=== PATIENT | female | born 1985 | race Caucasian/White ===

== ENCOUNTER 2016-03-24 01:33 | Emergency (ER) | payer OTHER, SELFPAY ==
[2016-03-24 03:13] LABS: MEAN CORPUSCULAR HEMOGLOBIN 34.2 pg (27.0-33.0); MEAN CORPUSCULAR HGB CONC 34.4 g/dl (32.0-36.5); MEAN CORPUSCULAR VOLUME 99.3 fl (80.0-96.0); WHITE BLOOD COUNT 8.8 K/mm3 (4.0-10.0)
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
--- NOTE | 2016-03-24 05:13 | EDDOCDS ---
Physician Documentation [facility] Name: Rose Mary Joyner Age: 31 yrs Sex: Female : 1985 Arrival Date: 03/24/2016 Time: 01:33 Bed Radiology Private MD: Disposition: 03/24/16 04:39 Discharged to Home/Self Care. Impression: Low back pain, Chest pain, unspecified. - Condition is Stable. - Discharge Instructions: Nonspecific Chest Pain. - Medication Reconciliation, Local Pharmacy Hours form. - [facility]; When: Call to arrange an appointment; Reason: Continuance of care. - Problem is new. - Symptoms have improved. Historical: - Allergies: no known allergies; - Home Meds: 1. none - PMHx: none; - PSHx: none; - Social history: Smoking status: Patient uses tobacco products, light tobacco smoker. No barriers to communication noted. - Family history: Not pertinent. - Immunization history: Last tetanus immunization: - up to date. - : The pt / caregiver states he / she is not on anticoagulants. Home medication list is obtained from the patient. - Last oral intake was: unknown. - Exposure Risk Screening:: None identified. 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 4 in. (162.56 cm); Pain 10/10; 05:03 BP 120 / 82 RA Sitting (auto/reg); Pulse 74 MON; Resp 18 S; Temp 98.0(TE); Pulse Ox 98% cln on R/A; Pain 0/10; 01:50 Body Mass Index 24.03 (63.50 kg, 162.56 cm) [facility] Trauma Score (Adult): 05:10 Eye Response: spontaneous(1); Verbal Response: oriented(1); Motor Response: obeys af2 commands(2); Systolic BP: > 89 mm Hg(4); Respiratory Rate: 10 to 29 per min(4); [place] Score: 15; Trauma Score: 12 MDM: 02:47 IV Saline Lock ordered. fg 02:47 Undress patient appropriately for examination ordered. fg 02:47 Set up pelvic ordered. fg 02:48 Complete Blood Count Ordered. EDMS 02:48 Hcg, Serum Quantitative Ordered. EDMS 02:48 Urinalysis Ordered. EDMS 02:48 Urine Culture Ordered. EDMS 02:49 Chest, 1 View Ordered. EDMS 02:49 Spine. Lumbosacral, Complete Ordered. EDMS 02:49 Type & Screen Ordered. EDMS 03:21 Financial registration complete. hs2 03:38 [facility] Payment Agreement was scanned into [employer] and attached to record. hs2 03:39 [facility] was scanned into [employer] and attached to record. hs2 Signatures: Dispatcher [employer] Starla Garcia RN RN [facility] Carito Camara RN RN af2 Naila Chinchilla MD MD Amy Vallejo, Reg Reg hs2 The chart was reviewed and I authenticate all verbal orders and agree with the evaluation and treatment provided.Corrections: (The following items were deleted from the chart) 04:08 02:47 Heart Tones ordered. fg fg 04:08 02:47 Orthostatic VS ordered. fg fg 04:10 02:48 Chlamydia & GC Amplification+LAB ordered. EDMS EDMS 04:10 02:48 WET PREP+CECE ordered. EDWA EDMS Attachments: 03:38 [facility] Payment Agreement hs2 MTDD
--- NOTE | 2016-03-24 07:54 | REP ---
Lumbosacral spine series 03/24/2016, five view exam Indication: Back pain Findings: There is very minimal lumbar dextro scoliosis. There is no acute fracture or spondylolisthesis. The disc spaces are maintained. Mild facet osteoarthritis is noted on the right and L5 S1. Air-filled loops of small bowel and colon suggest mild ileus Impression: No acute fracture or spondylolisthesis. Minimal lumbar dextroscoliosis. Mild facet osteoarthritis on the right at L5- S1. Mild ileus is suggest Signed by Millie Corona MD 03/24/2016 07:46 A
--- NOTE | 2016-03-26 06:13 | EDDOCDS ---
Physician Documentation Name: Rose Mary Doan Age: 31 yrs Sex: Female : 1985 Arrival Date: 03/24/2016 Time: 01:33 Bed Radiology Private MD: Disposition: 03/24/16 04:39 Discharged to Home/Self Care. Impression: Low back pain, Chest pain, unspecified. - Condition is Stable. - Discharge Instructions: Nonspecific Chest Pain. - Medication Reconciliation, Local Pharmacy Hours form. - [facility]; When: Call to arrange an appointment; Reason: Continuance of care. - Problem is new. - Symptoms have improved. Historical: - Allergies: no known allergies; - Home Meds: 1. none - PMHx: none; - PSHx: none; - Social history: Smoking status: Patient uses tobacco products, light tobacco smoker. No barriers to communication noted. - Family history: Not pertinent. - Immunization history: Last tetanus immunization: - up to date. - : The pt / caregiver states he / she is not on anticoagulants. Home medication list is obtained from the patient. - Last oral intake was: unknown. - Exposure Risk Screening:: None identified. 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 4 in. (162.56 cm); Pain 10/10; 05:03 BP 120 / 82 RA Sitting (auto/reg); Pulse 74 MON; Resp 18 S; Temp 98.0(TE); Pulse Ox 98% cln on R/A; Pain 0/10; 01:50 Body Mass Index 24.03 (63.50 kg, 162.56 cm) [facility] Trauma Score (Adult): 05:10 Eye Response: spontaneous(1); Verbal Response: oriented(1); Motor Response: obeys af2 commands(2); Systolic BP: > 89 mm Hg(4); Respiratory Rate: 10 to 29 per min(4); [place] Score: 15; Trauma Score: 12 MDM: 02:47 IV Saline Lock ordered. fg 02:47 Undress patient appropriately for examination ordered. fg 02:47 Set up pelvic ordered. fg 02:48 Complete Blood Count Ordered. EDMS 02:48 Hcg, Serum Quantitative Ordered. EDMS 02:48 Urinalysis Ordered. EDMS 02:48 Urine Culture Ordered. EDMS 02:49 Chest, 1 View Ordered. EDMS 02:49 Spine. Lumbosacral, Complete Ordered. EDMS 02:49 Type & Screen Ordered. EDMS 03:21 Financial registration complete. hs2 03:38 [facility] Payment Agreement was scanned into [employer] and attached to record. hs2 03:39 [facility] was scanned into [employer] and attached to record. hs2 13:57 T-Sheet-- Draft Copy was scanned into [employer] and attached to record. gb Signatures: Dispatcher [employer] EDCodie Wang, Reg Reg gb Starla Bay RN RN [facility] Carito Camara RN RN af2 Naila Chinchilla MD MD Amy Vallejo, Reg Reg hs2 The chart was reviewed and I authenticate all verbal orders and agree with the evaluation and treatment provided.Corrections: (The following items were deleted from the chart) 04:08 02:47 Heart Tones ordered. fg fg 04:08 02:47 Orthostatic VS ordered. fg fg 04:10 02:48 Chlamydia & GC Amplification+LAB ordered. EDMS EDMS 04:10 02:48 WET PREP+CECE ordered. EDMS EDMS Attachments: 03:38 [facility] Payment Agreement hs2 13:57 T-Sheet-- Draft Copy gb Chart Complete MTDD
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
--- NOTE | 2016-03-26 06:13 | EDDOCDS ---
Physician Documentation [facility] Name: Rose Mary Doan Age: 31 yrs Sex: Female : 1985 Arrival Date: 03/24/2016 Time: 01:33 Bed Radiology Private MD: Disposition: 03/24/16 04:39 Discharged to Home/Self Care. Impression: Low back pain, Chest pain, unspecified. - Condition is Stable. - Discharge Instructions: Nonspecific Chest Pain. - Medication Reconciliation, Local Pharmacy Hours form. - Follow up: [facility]; When: Call to arrange an appointment; Reason: Continuance of care. - Problem is new. - Symptoms have improved. Historical: - Allergies: no known allergies; - Home Meds: 1. none - PMHx: none; - PSHx: none; - Social history: Smoking status: Patient uses tobacco products, light tobacco smoker. No barriers to communication noted. - Family history: Not pertinent. - Immunization history: Last tetanus immunization: - up to date. - : The pt / caregiver states he / she is not on anticoagulants. Home medication list is obtained from the patient. - Last oral intake was: unknown. - Exposure Risk Screening:: None identified. 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 4 in. (162.56 cm); Pain 10/10; 05:03 BP 120 / 82 RA Sitting (auto/reg); Pulse 74 MON; Resp 18 S; Temp 98.0(TE); Pulse Ox 98% cln on R/A; Pain 0/10; 01:50 Body Mass Index 24.03 (63.50 kg, 162.56 cm) [facility] Trauma Score (Adult): 05:10 Eye Response: spontaneous(1); Verbal Response: oriented(1); Motor Response: obeys af2 commands(2); Systolic BP: > 89 mm Hg(4); Respiratory Rate: 10 to 29 per min(4); [place] Score: 15; Trauma Score: 12 MDM: 02:47 IV Saline Lock ordered. fg 02:47 Undress patient appropriately for examination ordered. fg 02:47 Set up pelvic ordered. fg 02:48 Complete Blood Count Ordered. EDMS 02:48 Hcg, Serum Quantitative Ordered. EDMS 02:48 Urinalysis Ordered. EDMS 02:48 Urine Culture Ordered. EDMS 02:49 Chest, 1 View Ordered. EDMS 02:49 Spine. Lumbosacral, Complete Ordered. EDMS 02:49 Type & Screen Ordered. EDMS 03:21 Financial registration complete. hs2 03:38 [facility] Payment Agreement was scanned into [employer] and attached to record. hs2 03:39 [facility] was scanned into [employer] and attached to record. hs2 13:57 T-Sheet-- Draft Copy was scanned into [employer] and attached to record. gb Signatures: Dispatcher [employer] EDCodie Wang, Reg Reg gb tSarla Bay RN RN [facility] Carito Camara RN RN af2 Naila Chinchilla MD MD Amy Vallejo, Reg Reg hs2 The chart was reviewed and I authenticate all verbal orders and agree with the evaluation and treatment provided.Corrections: (The following items were deleted from the chart) 04:08 02:47 Heart Tones ordered. fg fg 04:08 02:47 Orthostatic VS ordered. fg fg 04:10 02:48 Chlamydia & GC Amplification+LAB ordered. EDMS EDMS 04:10 02:48 WET PREP+CECE ordered. EDMS EDMS Attachments: 03:38 [facility] Payment Agreement hs2 13:57 T-Sheet-- Draft Copy gb Chart Complete MTDD
--- NOTE | 2016-03-30 13:48 | REP ---
GRAEME CHEST: 03/24/2016 The initial dictation on 03/24/2016 is missing from the dictation bank. The study is being submitted to Dr. Corona for re-dictation on 03/30/2016. INDICATION: Chest pain, 31-year-old female. COMPARISON: None. FINDINGS: The study is somewhat limited by positioning with the bilateral humeri and forearms adducted, partially obscuring the lower lung spicer. There is prominent breast tissue also projected over the lower lung spicer and bilateral nipple shadows are identified. The lungs, however, are without discrete focal infiltrate or pleural effusion. Bones and soft tissues within normal limits. IMPRESSION: The study is limited by patient positioning. However, there is no visualized acute cardiopulmonary process. MTDD
== END 2016-03-24 05:12 | disposition home or self-care (01) ==
LOC: M ED 01:33
DX: Z04.1 Encounter for examination and observation following transport accident (principal); R07.9 Chest pain, unspecified; M54.9 Dorsalgia, unspecified; V40.6XXA Car passenger injured in collision with pedestrian or animal in traffic accident, initial encounter; Y92.410 Unspecified street and highway as the place of occurrence of the external cause; F17.200 Nicotine dependence, unspecified, uncomplicated

== ENCOUNTER 2016-05-11 23:46 | Emergency (ER) | payer OTHER ==
[2016-05-12 00:06] VITALS: BP 152/96
[2016-05-12] MEDS ORDERED: NICOTINE 21MG/24HR 1 EA TRANSDERMAL TD ONE (02:15)
--- NOTE | 2016-05-12 02:50 | REPUSA ---
HISTORY: Trauma. COMPARISON: None. TECHNIQUE: Multiple thin-section contiguous helically-acquired axially-displayed computed tomographic images of the cervical spine are obtained from skull base inferiorly through T1, with images filmed at soft tissue and bone window. 2D Sagittal and coronal reformatted images are performed. FINDINGS: There is normal cervical vertebral body height and alignment on this supine, non-weight bearing exam. Vertebral body mineralization is normal. All of the intervertebral disc spaces have normal height and contour. There is no herniated nucleus p ulposus, canal or foraminal stenosis. No paraspinal masses or collections. IMPRESSION: Normal CT of the cervical spine. Thank you for your kind referral of this patient.
--- NOTE | 2016-05-12 03:00 | REPUSA ---
HISTORY: Trauma. COMPARISON: None. TECHNIQUE: Multiple thin section helically-acquired axially-displayed and helically acquired coronall y displayed computed tomographic images of the face are obtained from the mandible through the fronta l sinuses, with images obtained at soft tissue and bone window. 2D reformatted images were performed. FINDINGS: Normal bony mineralization. No fractures. Normal orbits. Mild chronic mucosal inflammatory changes of the left maxillary sinus. Normal, clear paranasal sinuses. Normal oral and nasal cavities. Normal infratemporal fossa and deep parapharyngeal spaces with normal muscles of mastication. Normal parotid and submandibular glands. IMPRESSION: No acute traumatic pathology. Thank you for your kind referral of this patient
== END 2016-05-12 03:13 | disposition home or self-care (01) ==
LOC: EDBD 23:46 → M ED 23:57
DX: S09.93XA Unspecified injury of face, initial encounter (principal); V49.9XXA Car occupant (driver) (passenger) injured in unspecified traffic accident, initial encounter; Y92.410 Unspecified street and highway as the place of occurrence of the external cause; Y93.02 Activity, running; Y99.9 Unspecified external cause status

== ENCOUNTER → 2016-07-13 | Outpatient (CLI) | payer OTHER, SELFPAY | LOC: M OUTALCOH 08:13 | PROVIDERS: ATTEND Psychiatry & Neurology Psychiatry | DX: Z13.9 Encounter for screening, unspecified (principal); F10.20 Alcohol dependence, uncomplicated ==

== ENCOUNTER 2016-08-09 10:00 | Outpatient (RCR) | payer MEDICAID, SELFPAY | END 2016-08-10 | LOC: M OUTALCOH 10:00 | PROVIDERS: ATTEND Psychiatry & Neurology Psychiatry | DX: Z13.9 Encounter for screening, unspecified (principal); F10.20 Alcohol dependence, uncomplicated; F17.200 Nicotine dependence, unspecified, uncomplicated ==

== ENCOUNTER 2016-08-30 09:00 | Outpatient (RCR) | payer MEDICAID | END 2016-09-09 | LOC: M OUTALCOH 09:00 | PROVIDERS: ATTEND Psychiatry & Neurology Psychiatry | DX: Z13.9 Encounter for screening, unspecified (principal); F10.20 Alcohol dependence, uncomplicated; F17.200 Nicotine dependence, unspecified, uncomplicated ==

== ENCOUNTER → 2016-11-16 | Outpatient (CLI) | payer MEDICAID ==
[~2016-11-16] MED LIST: BUPR300T34; CITA20TA4; CLON0.2T; FLON1SPR; SM N
== END ==
LOC: M OUTALCOH 07:47
PROVIDERS: ATTEND Psychiatry & Neurology Psychiatry
DX: F10.20 Alcohol dependence, uncomplicated (principal)

== ENCOUNTER 2016-12-05 19:27 | Emergency (ER) | payer MEDICAID, OTHER ==
[~2016-12-05] VITALS: Ht 162.6 cm; Wt 77.3 kg
[2016-12-05 19:28] VITALS: BP 153/86
[2016-12-05] MEDS ORDERED: CITA20TA4 (19:38)
[2016-12-05] MEDS ORDERED: SM N (19:38)
[2016-12-05] MEDS ORDERED: CLON0.2T (19:38)
[2016-12-05] MEDS ORDERED: BUPR300T34 (19:38)
[2016-12-05] MEDS ORDERED: FLON1SPR (21:44)
== END 2016-12-05 22:02 | disposition home or self-care (01) ==
LOC: M ED 19:27
DX: J04.0 Acute laryngitis (principal); Z72.0 Tobacco use

== ENCOUNTER 2016-12-09 11:00 | Outpatient (RCR) | payer MEDICAID | END 2016-12-10 | LOC: M OUTALCOH 11:00 | PROVIDERS: ATTEND Psychiatry & Neurology Psychiatry | DX: F10.20 Alcohol dependence, uncomplicated (principal); F17.200 Nicotine dependence, unspecified, uncomplicated ==

== ENCOUNTER 2017-02-08 09:42 | Emergency (ER) | payer MEDICAID, OTHER ==
[~2017-02-08] VITALS: Ht 162.6 cm; Wt 75.0 kg
[2017-02-08] MEDS ORDERED: ACAM0.05 (10:01)
[2017-02-08] MEDS ORDERED: CIPROFLOXACIN HC OTIC SUSPENSION AS ONE (10:30)
--- NOTE | 2017-02-08 10:43 | REP ---
Clinical: Cough . Comparison: 03/24/2016. Technique: PA and lateral. Findings: The mediastinum and cardiac silhouette are normal. The lung spicer are clear and without acute consolidation, effusion, or pneumothorax. The skeletal structures are intact and normal. Impression: 1. No acute cardiopulmonary process. Signed by Colt Dinh MD 02/08/2017 10:36 A
[2017-02-08] MEDS ORDERED: CIPRHCOTIC AS (11:20)
[2017-02-08] MEDS ORDERED: TESS100C PO (11:20)
[2017-02-08 11:37] VITALS: BP 123/73
== END 2017-02-08 11:39 | disposition home or self-care (01) ==
LOC: M ED 09:42
DX: H60.92 Unspecified otitis externa, left ear (principal); R05 Cough; F33.9 Major depressive disorder, recurrent, unspecified; Z88.8 Allergy status to other drugs, medicaments and biological substances; F17.210 Nicotine dependence, cigarettes, uncomplicated

== ENCOUNTER → 2017-02-09 | Outpatient (RCR) | payer OTHER ==
[~2017-02-09] MED LIST changes: +ACAM0.05; +CIPRHCOTIC AS; +TESS100C PO
== END ==
LOC: M OUTALCOH 01-11 08:45
PROVIDERS: ATTEND Psychiatry & Neurology Psychiatry
DX: F10.20 Alcohol dependence, uncomplicated (principal); F17.200 Nicotine dependence, unspecified, uncomplicated

== ENCOUNTER 2017-02-13 16:00 | Outpatient (RCR) | payer OTHER, SELFPAY, MEDICAID | END 2017-03-12 | LOC: M OUTALCOH 02-14 09:00 | DX: F10.20 Alcohol dependence, uncomplicated (principal); F17.200 Nicotine dependence, unspecified, uncomplicated ==

== ENCOUNTER → 2017-03-09 | Outpatient (CLI) | payer OTHER ==
[2017-03-09 10:09] LABS: BASO # 0.1 10^3/uL (0.0-0.2); EOS # 0.3 10^3/uL (0.0-0.50); EOS % 3.5 % (0.0-3.0); IMMATURE GRANULOCYTE % 0.2 % (0-0); LYMPH # 2.7 10^3/uL (1.5-4.5); LYMPH % 33.7 % (24.0-44.0); MEAN CORPUSCULAR HGB CONC 33.6 g/dl (32.0-36.5); MEAN CORPUSCULAR VOLUME 95.3 fl (80.0-96.0); MONO # 0.7 10^3/uL (0.0-0.8); MONO % 8.9 % (0.0-5.0); NEUTROPHILS # 4.2 10^3/uL (1.8-7.7); NEUTROPHILS % 52.7 % (36.0-66.0); PLATELET COUNT, AUTOMATED 265 10^3/uL (150-450); RED CELL DISTRIBUTION WIDTH 12.5 % (11.5-14.5); WHITE BLOOD COUNT 8.1 10^3/uL (4.0-10.0)
[2017-03-09 10:35] LABS: ALBUMIN 3.6 GM/DL (3.2-5.2); ALBUMIN/GLOBULIN RATIO 1.24 (1.00-1.93); ALKALINE PHOSPHATASE 62 U/L (45-117); ALT/SGPT 49 U/L (12-78); ANION GAP 5 MEQ/L (8-16); AST/SGOT 24 U/L (7-37); BILIRUBIN,TOTAL 0.4 MG/DL (0.2-1.0); BLOOD UREA NITROGEN 14 MG/DL (7-18); CALCIUM LEVEL 8.9 MG/DL (8.5-10.1); CARBON DIOXIDE LEVEL 31 MEQ/L (21-32); CHLORIDE LEVEL 103 MEQ/L (98-107); CREATININE FOR GFR 0.65 MG/DL (0.55-1.02); GLOMERULAR FILTRATION RATE > 60.0 (>60); GLUCOSE, FASTING 66 MG/DL (70-105); POTASSIUM SERUM 4.4 MEQ/L (3.5-5.1); SODIUM LEVEL 139 MEQ/L (136-145); TOTAL PROTEIN 6.5 GM/DL (6.4-8.2)
== END ==
LOC: M LAB 09:19
DX: Z79.891 Long term (current) use of opiate analgesic (principal)
CPT/HCPCS: 80053

== ENCOUNTER → 2017-07-31 | Outpatient (CLI) | payer OTHER ==
[2017-07-31 09:37] LABS: BASO % 0.4 % (0.0-1.0); EOS # 0.1 10^3/uL (0.0-0.50); EOS % 2.1 % (0.0-3.0); HEMATOCRIT 38.2 % (36.0-47.0); HEMOGLOBIN 13.1 g/dl (12.0-15.5); IMMATURE GRANULOCYTE % 0.3 % (0-3.0); LYMPH # 2.1 10^3/uL (1.5-4.5); LYMPH % 31.4 % (24.0-44.0); MEAN CORPUSCULAR HEMOGLOBIN 31.1 pg (27.0-33.0); MEAN CORPUSCULAR HGB CONC 34.3 g/dl (32.0-36.5); MEAN CORPUSCULAR VOLUME 90.7 fl (80.0-96.0); MONO # 0.5 10^3/uL (0.0-0.8); MONO % 6.7 % (0.0-5.0); NEUTROPHILS % 59.1 % (36.0-66.0); PLATELET COUNT, AUTOMATED 223 10^3/uL (150-450); RED BLOOD COUNT 4.21 10^6/uL (4.00-5.40); WHITE BLOOD COUNT 6.7 10^3/uL (4.0-10.0)
[2017-07-31 10:05] LABS: ALBUMIN 3.5 GM/DL (3.2-5.2); ALBUMIN/GLOBULIN RATIO 1.21 (1.00-1.93); ALKALINE PHOSPHATASE 67 U/L (45-117); ALT/SGPT 25 U/L (12-78); ANION GAP 6 MEQ/L (8-16); AST/SGOT 18 U/L (7-37); BILIRUBIN,TOTAL 0.3 MG/DL (0.2-1.0); BLOOD UREA NITROGEN 13 MG/DL (7-18); CALCIUM LEVEL 8.6 MG/DL (8.5-10.1); CARBON DIOXIDE LEVEL 25 MEQ/L (21-32); CHLORIDE LEVEL 111 MEQ/L (98-107); CREATININE FOR GFR 0.74 MG/DL (0.55-1.30); GLOMERULAR FILTRATION RATE > 60.0 (>60); GLUCOSE, FASTING 98 MG/DL (70-100); POTASSIUM SERUM 4.4 MEQ/L (3.5-5.1); SODIUM LEVEL 142 MEQ/L (136-145); TOTAL PROTEIN 6.4 GM/DL (6.4-8.2)
[2017-08-02 00:06] LABS: COMPLEMENT TOTAL (CH50) 39 U/mL (>41)
== END ==
LOC: M LAB 08:51
DX: R79.9 Abnormal finding of blood chemistry, unspecified (principal); E87.8 Other disorders of electrolyte and fluid balance, not elsewhere classified
CPT/HCPCS: 80053

== ENCOUNTER → 2017-09-02 | Outpatient (CLI) | payer OTHER | LOC: M LAB 09:16 | DX: M21.40 Flat foot [pes planus] (acquired), unspecified foot (principal) | CPT/HCPCS: 73620 ==

== ENCOUNTER → 2017-10-19 | Outpatient (CLI) | payer OTHER ==
[2017-10-19 14:01] LABS: BASO # 0.1 10^3/uL (0.0-0.2); BASO % 0.7 % (0.0-1.0); EOS # 0.2 10^3/uL (0.0-0.50); EOS % 3.4 % (0.0-3.0); HEMATOCRIT 38.9 % (36.0-47.0); HEMOGLOBIN 13.2 g/dl (12.0-15.5); IMMATURE GRANULOCYTE % 0.3 % (0-3.0); LYMPH # 3.1 10^3/uL (1.5-4.5); LYMPH % 44.3 % (24.0-44.0); MEAN CORPUSCULAR HEMOGLOBIN 31.5 pg (27.0-33.0); MEAN CORPUSCULAR HGB CONC 33.9 g/dl (32.0-36.5); MEAN CORPUSCULAR VOLUME 92.8 fl (80.0-96.0); MONO # 0.6 10^3/uL (0.0-0.8); MONO % 8.4 % (0.0-5.0); NEUTROPHILS % 42.9 % (36.0-66.0); PLATELET COUNT, AUTOMATED 247 10^3/uL (150-450); RED BLOOD COUNT 4.19 10^6/uL (4.00-5.40)
[2017-10-19 14:04] LABS: APPEARANCE, URINE CLOUDY (CLEAR); BACTERIA, URINE AUTO 1+ (NEGATIVE); BILIRUBIN, URINE AUTO NEGATIVE (NEGATIVE); BLOOD, URINE BLOOD NEGATIVE (NEGATIVE); COLOR, URINE YELLOW (YELLOW); GLUCOSE, URINE (UA) AUTO NEGATIVE (NEGATIVE); KETONE, URINE AUTO NEGATIVE (NEGATIVE); LEUKOCYTE ESTERASE, URINE AUTO 1+ (NEGATIVE); MUCUS, URINE SMALL (NEGATIVE); NITRITE, URINE AUTO NEGATIVE (NEGATIVE); PROTEIN, URINE AUTO NEGATIVE (NEGATIVE); RBC, URINE AUTO 3 /HPF (0-3); SPECIFIC GRAVITY URINE AUTO 1.026 (1.002-1.035); SQUAMOUS EPITHELIAL CELL UR AU 5 /HPF (0-6); UROBILINOGEN, URINE AUTO 0.2 mg/dL (0.0-2.0); WBC, URINE AUTO 5 /HPF (0-3)
[2017-10-19 14:34] LABS: ALBUMIN 3.3 GM/DL (3.2-5.2); ALKALINE PHOSPHATASE 68 U/L (45-117); ALT/SGPT 22 U/L (12-78); ANION GAP 5 MEQ/L (8-16); AST/SGOT 29 U/L (7-37); BILIRUBIN,TOTAL 0.3 MG/DL (0.2-1.0); BLOOD UREA NITROGEN 11 MG/DL (7-18); CALCIUM LEVEL 8.2 MG/DL (8.5-10.1); CARBON DIOXIDE LEVEL 26 MEQ/L (21-32); CHLORIDE LEVEL 110 MEQ/L (98-107); CREATININE FOR GFR 0.73 MG/DL (0.55-1.30); GLOMERULAR FILTRATION RATE > 60.0 (>60); GLUCOSE, FASTING 96 MG/DL (70-100); SODIUM LEVEL 141 MEQ/L (136-145); TOTAL PROTEIN 6.3 GM/DL (6.4-8.2)
[2017-10-19 14:39] LABS: POTASSIUM SERUM 5.2 MEQ/L (3.5-5.1)
== END ==
LOC: M LAB 13:17
DX: Z00.00 Encounter for general adult medical examination without abnormal findings (principal)
CPT/HCPCS: 80053

== ENCOUNTER 2017-11-20 10:01 | Outpatient (RCR) | payer OTHER | END 2017-12-10 | LOC: M PT 10:01 | DX: Z47.89 Encounter for other orthopedic aftercare (principal); M54.5 Low back pain | CPT/HCPCS: 97010 ==

== ENCOUNTER 2017-12-11 12:35 | Outpatient (RCR) | payer OTHER | END 2018-01-10 | LOC: M PT 12-15 09:17 | DX: Z47.89 Encounter for other orthopedic aftercare (principal); M54.5 Low back pain | CPT/HCPCS: 97010 ==

== ENCOUNTER 2019-01-27 16:23 | Emergency (ER) | payer OTHER ==
[~2019-01-27] VITALS: Ht 162.6 cm; Wt 74.2 kg
[~2019-01-27 16:23] MED LIST changes: -CITA20TA4; +CITA20TA6
[2019-01-27] MEDS ORDERED: BUSP30TA PO (16:44)
[2019-01-27] MEDS ORDERED: NALT50TA4 PO (16:44)
[2019-01-27] MEDS ORDERED: metroNIDAZOLE (FLAGYL) 500 MG TAB PO ONE (17:45)
[2019-01-27] MEDS ORDERED: ULIPRISTAL ACETATE 30 MG TAB (ELLA) PO ONE (17:45)
[2019-01-27] MEDS ORDERED: EXPOSURE KIT-ADULT 7 DAY SUPPLY PO ONE (17:45)
[2019-01-27] MEDS ORDERED: LIDOCAINE 1% SDV 5 ML VIAL DILUENT ONE (17:45)
[2019-01-27] MEDS ORDERED: cefTRIAXone SOD 250 MG VIAL (J0696) IM ONE (17:45)
[2019-01-27] MEDS ORDERED: AZITHROMYCIN 250 MG TAB PO ONE (17:45)
[2019-01-27 18:04] LABS: BASO # 0.1 10^3/uL (0.0-0.2); BASO % 0.9 % (0.0-1.0); EOS # 0.1 10^3/uL (0.0-0.5); EOS % 0.8 % (0.0-3.0); HEMOGLOBIN 16.1 g/dl (12.0-15.5); LYMPH # 1.8 10^3/uL (1.5-5.0); LYMPH % 23.2 % (24.0-44.0); MEAN CORPUSCULAR HEMOGLOBIN 33.5 pg (27.0-33.0); MEAN CORPUSCULAR HGB CONC 34.3 g/dl (32.0-36.5); MEAN CORPUSCULAR VOLUME 97.9 fl (80.0-96.0); MONO # 0.5 10^3/uL (0.0-0.8); MONO % 6.6 % (0.0-5.0); NEUTROPHILS # 5.2 10^3/uL (1.5-8.5); NEUTROPHILS % 68.1 % (36.0-66.0); PLATELET COUNT, AUTOMATED 301 10^3/uL (150-450); WHITE BLOOD COUNT 7.6 10^3/uL (4.0-10.0)
[2019-01-27 18:27] LABS: ALBUMIN 3.9 GM/DL (3.2-5.2); ALT/SGPT 45 U/L (12-78); BILIRUBIN,TOTAL 0.8 MG/DL (0.2-1.0); BLOOD UREA NITROGEN 8 MG/DL (7-18); CALCIUM LEVEL 9.9 MG/DL (8.5-10.1); CARBON DIOXIDE LEVEL 27 MEQ/L (21-32); CHLORIDE LEVEL 105 MEQ/L (98-107); GLOMERULAR FILTRATION RATE > 60.0 (>60); GLUCOSE, FASTING 125 MG/DL (70-100); POTASSIUM SERUM 4.2 MEQ/L (3.5-5.1); SODIUM LEVEL 137 MEQ/L (136-145); TOTAL PROTEIN 7.1 GM/DL (6.4-8.2)
[2019-01-27 18:28] LABS: HCG, SERUM QUALITATIVE NEGATIVE (NEGATIVE)
[2019-01-27] MEDS ORDERED: RALTEGRAVIR 400 MG TAB (ISENTRESS) PO ONE (18:30)
[2019-01-27] MEDS ORDERED: TRUVADA 200MG/300MG TABLET PO ONE (18:30)
[2019-01-27 23:36] VITALS: BP 152/99
[2019-01-27] MEDS ORDERED: RALT40TA PO (23:43)
[2019-01-27] MEDS ORDERED: TRUVTAB PO (23:43)
[2019-01-27] MEDS ORDERED: ZOFR4TAB16 PO (23:44)
[2019-01-28] MEDS ORDERED: TRUVADA 200MG/300MG TABLET PO SCH
[2019-01-28] MEDS ORDERED: RALTEGRAVIR 400 MG TAB (ISENTRESS) PO SCH
[2019-01-28 10:25] LABS: HEPATITIS B SURFACE ANTIBODY POSITIVE (POSITIVE)
[2019-01-28 10:35] LABS: HEPATITIS B SURFACE ANTIGEN NEGATIVE (NEGATIVE)
[2019-01-28 11:04] LABS: HIV 1&2 SCREEN CENTAUR NEGATIVE (NEGATIVE)
== END 2019-01-28 | disposition home or self-care (01) ==
LOC: M ED 16:23
DX: Z04.41 Encounter for examination and observation following alleged adult rape (principal); F32.9 Major depressive disorder, single episode, unspecified; F17.200 Nicotine dependence, unspecified, uncomplicated; Z79.899 Other long term (current) drug therapy; Z88.8 Allergy status to other drugs, medicaments and biological substances
CPT/HCPCS: 80053; 84703; 85025; 86706; 86780; 86803; 87340; 87389; 99283; J0696

== ENCOUNTER → 2019-01-28 | Outpatient (CLI) | payer OTHER ==
[~2019-01-28] MED LIST changes: +BUSP30TA PO; +NALT50TA4 PO; +RALT40TA PO; +TRUVTAB PO; +ZOFR4TAB16 PO
== END ==
LOC: M OUTALCOH 07:38
PROVIDERS: ATTEND Psychiatry & Neurology Psychiatry
DX: F10.20 Alcohol dependence, uncomplicated (principal)

== ENCOUNTER 2019-02-04 10:03 | Outpatient (RCR) | payer OTHER | END 2019-02-09 | LOC: M OUTALCOH 10:03 | PROVIDERS: ATTEND Psychiatry & Neurology Psychiatry | DX: F10.20 Alcohol dependence, uncomplicated (principal); F17.200 Nicotine dependence, unspecified, uncomplicated ==

== ENCOUNTER → 2019-02-14 | Outpatient (REF) | payer OTHER ==
[2019-02-14 16:55] LABS: INFLUENZA A AMPLIFICATION NEGATIVE (NEGATIVE); INFLUENZA B AMPLIFICATION NEGATIVE (NEGATIVE)
== END ==
LOC: M LAB REF 16:20
PROVIDERS: ATTEND Physician Assistant
DX: Z20.828 Contact with and (suspected) exposure to other viral communicable diseases (principal)

== ENCOUNTER → 2019-03-12 | Outpatient (RCR) | payer OTHER | LOC: M OUTALCOH 02-18 09:34 | PROVIDERS: ATTEND Psychiatry & Neurology Psychiatry | DX: F10.10 Alcohol abuse, uncomplicated (principal) ==

== ENCOUNTER 2019-04-08 14:00 | Outpatient (RCR) | payer OTHER ==
[~2019-04-08 14:00] MED LIST changes: -BUPR300T34; +BUPR300T92
== END 2019-04-12 ==
LOC: M OUTALCOH 14:00
PROVIDERS: ATTEND Psychiatry & Neurology Psychiatry
DX: F10.10 Alcohol abuse, uncomplicated (principal)

== ENCOUNTER 2019-05-08 12:00 | Outpatient (RCR) | payer OTHER | END 2019-05-11 | LOC: M OUTALCOH 12:00 | PROVIDERS: ATTEND Psychiatry & Neurology Addiction Medicine | DX: F10.20 Alcohol dependence, uncomplicated (principal); F17.200 Nicotine dependence, unspecified, uncomplicated ==

== ENCOUNTER 2019-05-22 12:00 | Outpatient (RCR) | payer OTHER | END 2019-06-11 | LOC: M OUTALCOH 12:00 | PROVIDERS: ATTEND Psychiatry & Neurology Addiction Medicine | DX: F10.10 Alcohol abuse, uncomplicated (principal); F17.200 Nicotine dependence, unspecified, uncomplicated ==

== ENCOUNTER 2019-11-08 14:44 | Emergency (ER) | payer OTHER ==
[~2019-11-08] VITALS: Ht 160 cm; Wt 60.5 kg
[2019-11-08 14:45] VITALS: BP 123/79
[2019-11-08] MEDS ORDERED: PANTOPRAZOLE 40MG VIAL (C9113 PER 1) IV ONE (16:30)
[2019-11-08] MEDS ORDERED: NS 1,000 ML IV ONE (16:30)
[2019-11-08 16:54] LABS: BASO # 0.1 10^3/uL (0.0-0.2); BASO % 0.9 % (0.0-1.0); EOS % 0.5 % (0.0-3.0); HEMATOCRIT 44.1 % (36.0-47.0); HEMOGLOBIN 15.4 g/dl (12.0-15.5); LYMPH # 3.4 10^3/uL (1.5-5.0); LYMPH % 43.4 % (24.0-44.0); MEAN CORPUSCULAR HEMOGLOBIN 35.2 pg (27.0-33.0); MEAN CORPUSCULAR HGB CONC 34.9 g/dl (32.0-36.5); MEAN CORPUSCULAR VOLUME 100.9 fl (80.0-96.0); MONO # 0.6 10^3/uL (0.0-0.8); MONO % 8.1 % (0.0-5.0); NEUTROPHILS # 3.6 10^3/uL (1.5-8.5); NEUTROPHILS % 46.6 % (36.0-66.0); PLATELET COUNT, AUTOMATED 334 10^3/uL (150-450); RED BLOOD COUNT 4.37 10^6/uL (4.00-5.40); WHITE BLOOD COUNT 7.8 10^3/uL (4.0-10.0)
[2019-11-08 17:00] LABS: ALT/SGPT 29 U/L (12-78); BLOOD UREA NITROGEN 7 MG/DL (7-18); CARBON DIOXIDE LEVEL 28 MEQ/L (21-32); CHLORIDE LEVEL 103 MEQ/L (98-107); CREATININE FOR GFR 0.79 MG/DL (0.55-1.30); GLOMERULAR FILTRATION RATE > 60.0 (>60); GLUCOSE, FASTING 85 MG/DL (70-100); POTASSIUM SERUM 4.2 MEQ/L (3.5-5.1); SODIUM LEVEL 138 MEQ/L (136-145)
[2019-11-08 17:01] LABS: ALBUMIN 3.5 GM/DL (3.2-5.2); BILIRUBIN,DIRECT < 0.1 MG/DL (0.0-0.2); BILIRUBIN,TOTAL 0.2 MG/DL (0.2-1.0); LIPASE 61 U/L (73-393); TOTAL PROTEIN 6.8 GM/DL (6.4-8.2)
[2019-11-08 17:22] LABS: HCG, SERUM QUALITATIVE NEGATIVE (NEGATIVE)
== END 2019-11-08 18:12 | disposition left against medical advice (07) ==
LOC: M ED 14:44
DX: R10.9 Unspecified abdominal pain (principal); F17.210 Nicotine dependence, cigarettes, uncomplicated
CPT/HCPCS: 36415; 80048; 80076; 83690; 84703; 85025; 87486; 87581; 87633; 87798; 87880; 99284; C9113

== ENCOUNTER 2019-11-20 16:53 | Emergency (ER) | payer OTHER ==
[~2019-11-20] VITALS: Ht 160 cm; Wt 57.4 kg
== END 2019-11-20 17:05 | disposition left against medical advice (07) ==
LOC: M ED 16:53
DX: Z53.21 Procedure and treatment not carried out due to patient leaving prior to being seen by health care provider (principal)

== ENCOUNTER 2019-11-21 11:14 | Emergency (ER) | payer OTHER ==
[~2019-11-21] VITALS: Ht 165.1 cm; Wt 59.1 kg
[2019-11-21 12:10] LABS: BASO # 0.1 10^3/uL (0.0-0.2); BASO % 0.8 % (0.0-1.0); EOS # 0.1 10^3/uL (0.0-0.5); EOS % 0.8 % (0.0-3.0); HEMATOCRIT 43.4 % (36.0-47.0); HEMOGLOBIN 15.2 g/dl (12.0-15.5); LYMPH # 3.1 10^3/uL (1.5-5.0); LYMPH % 33.6 % (24.0-44.0); MEAN CORPUSCULAR HEMOGLOBIN 35.4 pg (27.0-33.0); MEAN CORPUSCULAR VOLUME 101.2 fl (80.0-96.0); MONO # 0.4 10^3/uL (0.0-0.8); MONO % 4.4 % (0.0-5.0); NEUTROPHILS # 5.5 10^3/uL (1.5-8.5); NEUTROPHILS % 60.2 % (36.0-66.0); PLATELET COUNT, AUTOMATED 217 10^3/uL (150-450); RED BLOOD COUNT 4.29 10^6/uL (4.00-5.40); WHITE BLOOD COUNT 9.2 10^3/uL (4.0-10.0)
[2019-11-21] MEDS ORDERED: NS 1,000 ML IV ONE ×2 (12:15→15:15)
[2019-11-21 12:31] LABS: HCG, SERUM QUALITATIVE NEGATIVE (NEGATIVE)
[2019-11-21 12:39] LABS: ACETAMINOPHEN LEVEL < 2.0 UG/ML (10.0-30.0); ALBUMIN 3.3 GM/DL (3.2-5.2); ALT/SGPT 49 U/L (12-78); BILIRUBIN,DIRECT 0.2 MG/DL (0.0-0.2); BILIRUBIN,TOTAL 0.4 MG/DL (0.2-1.0); BLOOD UREA NITROGEN 9 MG/DL (7-18); CALCIUM LEVEL 9.2 MG/DL (8.5-10.1); CARBON DIOXIDE LEVEL 25 MEQ/L (21-32); CHLORIDE LEVEL 108 MEQ/L (98-107); CPK CREATINE PHOSPHOKINASE 330 U/L (26-192); CREATININE FOR GFR 0.82 MG/DL (0.55-1.30); ETHYL ALCOHOL (ETHANOL) 0.222 % (0.000-0.010); GLOMERULAR FILTRATION RATE > 60.0 (>60); GLUCOSE, FASTING 103 MG/DL (70-100); POTASSIUM SERUM 3.7 MEQ/L (3.5-5.1); SALICYLATE LEVEL 1.8 MG/DL (5.0-30.0); SODIUM LEVEL 143 MEQ/L (136-145); TOTAL PROTEIN 6.6 GM/DL (6.4-8.2)
[2019-11-21 17:08] LABS: AMPHETAMINES LEVEL URINE POSITIVE (NEGATIVE); BARBITURATES URINE NEGATIVE (NEGATIVE); BENZODIAZEPINES URINE NEGATIVE (NEGATIVE); CANNABINOIDS URINE POSITIVE (NEGATIVE); COCAINE METABOLITE URINE POSITIVE (NEGATIVE); METHADONE URINE NEGATIVE (NEGATIVE); OPIATES URINE NEGATIVE (NEGATIVE); PHENCYCLIDINE URINE NEGATIVE (NEGATIVE)
[2019-11-21 23:58] VITALS: BP 141/90
--- NOTE | 2019-12-05 13:21 | ECGEPIP ---
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
== END 2019-11-22 00:05 ==
LOC: EDBD 11:14 → M ED 11:14
DX: F32.89 Other specified depressive episodes (principal); R00.0 Tachycardia, unspecified; Z79.899 Other long term (current) drug therapy; Z88.8 Allergy status to other drugs, medicaments and biological substances
CPT/HCPCS: 36415; 80048; 80076; 80307; 82550; 84443; 84703; 85025; 93005; 93041; 94760; 96360; 96361; 99285; G0480; U0002

== ENCOUNTER 2019-11-28 23:16 | Emergency (ER) | payer OTHER ==
[~2019-11-28] VITALS: Ht 162.6 cm; Wt 63.6 kg
[2019-11-28] MEDS ORDERED: PANT40TA29 PO (23:41)
[2019-11-28] MEDS ORDERED: PARO5TAB PO (23:41)
[2019-11-28] MEDS ORDERED: QUET100T2 PO (23:41)
[2019-11-28 23:46] LABS: HEMATOCRIT 42.1 % (36.0-47.0); HEMOGLOBIN 14.1 g/dl (12.0-15.5); MEAN CORPUSCULAR HEMOGLOBIN 35.4 pg (27.0-33.0); MEAN CORPUSCULAR HGB CONC 33.5 g/dl (32.0-36.5); MEAN CORPUSCULAR VOLUME 105.8 fl (80.0-96.0); PLATELET COUNT, AUTOMATED 279 10^3/uL (150-450); RED BLOOD COUNT 3.98 10^6/uL (4.00-5.40)
[2019-11-29 00:17] LABS: HCG, SERUM QUALITATIVE NEGATIVE (NEGATIVE)
[2019-11-29 00:36] LABS: AMPHETAMINES LEVEL URINE POSITIVE (NEGATIVE); BARBITURATES URINE NEGATIVE (NEGATIVE); BENZODIAZEPINES URINE POSITIVE (NEGATIVE); CANNABINOIDS URINE POSITIVE (NEGATIVE); COCAINE METABOLITE URINE NEGATIVE (NEGATIVE); METHADONE URINE NEGATIVE (NEGATIVE); OPIATES URINE POSITIVE (NEGATIVE); PHENCYCLIDINE URINE NEGATIVE (NEGATIVE)
[2019-11-29 00:37] LABS: ACETAMINOPHEN LEVEL < 2.0 UG/ML (10.0-30.0); ALBUMIN 4.1 GM/DL (3.2-5.2); ALT/SGPT 56 U/L (12-78); BILIRUBIN,DIRECT 0.2 MG/DL (0.0-0.2); BILIRUBIN,TOTAL 0.5 MG/DL (0.2-1.0); BLOOD UREA NITROGEN 15 MG/DL (7-18); CALCIUM LEVEL 9.2 MG/DL (8.5-10.1); CARBON DIOXIDE LEVEL 22 MEQ/L (21-32); CHLORIDE LEVEL 110 MEQ/L (98-107); CREATININE FOR GFR 0.89 MG/DL (0.55-1.30); ETHYL ALCOHOL (ETHANOL) < 0.003 % (0.000-0.010); GLOMERULAR FILTRATION RATE > 60.0 (>60); GLUCOSE, FASTING 123 MG/DL (70-100); POTASSIUM SERUM 4.1 MEQ/L (3.5-5.1); SALICYLATE LEVEL < 1.7 MG/DL (5.0-30.0); SODIUM LEVEL 139 MEQ/L (136-145); TOTAL PROTEIN 7.5 GM/DL (6.4-8.2)
[2019-11-29 02:28] VITALS: BP 134/86
== END 2019-11-29 02:32 | disposition home or self-care (01) ==
LOC: M ED 23:16
DX: F19.10 Other psychoactive substance abuse, uncomplicated (principal); F32.9 Major depressive disorder, single episode, unspecified; K21.9 Gastro-esophageal reflux disease without esophagitis; F17.200 Nicotine dependence, unspecified, uncomplicated; Z79.899 Other long term (current) drug therapy; Z88.8 Allergy status to other drugs, medicaments and biological substances
CPT/HCPCS: 80048; 80076; 80307; 84443; 84703; 85027; 99284; G0480

== ENCOUNTER 2020-07-01 19:17 | Emergency (ER) | payer MEDICAID, OTHER, SELFPAY ==
[~2020-07-01] VITALS: Ht 162.6 cm; Wt 58.5 kg
[~2020-07-01 19:17] MED LIST changes: +EMTR1TAB16 PO; +PANT40TA29 PO; +PARO5TAB PO; +QUET100T2 PO; -TRUVTAB PO
[2020-07-01] MEDS ORDERED: NS 1,000 ML IV ONE (19:45)
[2020-07-01 19:52] LABS: BASO % 0.3 % (0.0-1.0); EOS % 0.1 % (0.0-3.0); HEMATOCRIT 42.3 % (36.0-47.0); HEMOGLOBIN 13.9 g/dl (12.0-15.5); LYMPH # 2.3 10^3/uL (1.5-5.0); LYMPH % 16.6 % (24.0-44.0); MEAN CORPUSCULAR HEMOGLOBIN 32.6 pg (27.0-33.0); MEAN CORPUSCULAR HGB CONC 32.9 g/dl (32.0-36.5); MEAN CORPUSCULAR VOLUME 99.1 fl (80.0-96.0); MONO % 6.9 % (2.0-8.0); NEUTROPHILS # 10.6 10^3/uL (1.5-8.5); NEUTROPHILS % 75.5 % (36.0-66.0); PLATELET COUNT, AUTOMATED 286 10^3/uL (150-450); RED BLOOD COUNT 4.27 10^6/uL (4.00-5.40); VENOUS BASE EXCESS -4.9 (-2.0-2.0); VENOUS HCO3 24.6 MEQ/L (23.0-27.0); VENOUS O2 SATURATION 57.3 % (60.0-80.0); VENOUS PARTIAL PRESSURE CO2 66.1 mmHg (38.0-50.0); VENOUS PARTIAL PRESSURE O2 33.4 mmHg (30.0-50.0); VENOUS PH 7.189 UNITS (7.330-7.430); VENOUS STANDARD HCO3 19.5 MEQ/L; VENOUS TOTAL CO2 26.7 MEQ/L (24.0-28.0)
[2020-07-01 20:18] LABS: HCG, SERUM QUALITATIVE NEGATIVE (NEGATIVE)
[2020-07-01 20:19] LABS: OSMOLALITY SERUM 308 MOSM/KG (275-295)
[2020-07-01 20:38] LABS: ACETAMINOPHEN LEVEL < 2.0 UG/ML (10.0-30.0); ALBUMIN 3.5 GM/DL (3.2-5.2); ALT/SGPT 40 U/L (12-78); BILIRUBIN,DIRECT 0.1 MG/DL (0.0-0.2); BILIRUBIN,TOTAL 0.2 MG/DL (0.2-1.0); BLOOD UREA NITROGEN 9 MG/DL (7-18); CALCIUM LEVEL 8.5 MG/DL (8.5-10.1); CARBON DIOXIDE LEVEL 28 MEQ/L (21-32); CHLORIDE LEVEL 104 MEQ/L (98-107); CPK CREATINE PHOSPHOKINASE 213 U/L (26-192); CREATININE FOR GFR 0.93 MG/DL (0.55-1.30); ETHYL ALCOHOL (ETHANOL) 0.102 % (0.000-0.010); GLOMERULAR FILTRATION RATE > 60.0 (>60); GLUCOSE, FASTING 54 MG/DL (70-100); POTASSIUM SERUM 3.5 MEQ/L (3.5-5.1); SALICYLATE LEVEL 2.3 MG/DL (5.0-30.0); SODIUM LEVEL 140 MEQ/L (136-145); TOTAL PROTEIN 6.7 GM/DL (6.4-8.2)
--- NOTE | 2020-07-01 21:28 | REPVR ---
PROCEDURE INFORMATION: Exam: XR Chest Exam date and time: 07/01/2020 8:42 PM Age: 35 years old Clinical indication: Other: Od; Additional info: Drug overdose TECHNIQUE: Imaging protocol: XR of the chest. Views: 1 view. COMPARISON: CR Chest, 1 view 03/24/2016 4:20 AM FINDINGS: Lungs: Unremarkable. No consolidation. Pleural spaces: Unremarkable. No pleural effusion. No pneumothorax. Heart/Mediastinum: Unremarkable. No cardiomegaly. Bones/joints: Unremarkable. IMPRESSION: No acute findings. Electronically signed by: Juan Alberto Hernandez On 07/01/2020 21:28:14 PM
[2020-07-01 21:54] LABS: AMPHETAMINES LEVEL URINE POSITIVE (NEGATIVE); BARBITURATES URINE NEGATIVE (NEGATIVE); BENZODIAZEPINES URINE NEGATIVE (NEGATIVE); CANNABINOIDS URINE POSITIVE (NEGATIVE); COCAINE METABOLITE URINE NEGATIVE (NEGATIVE); METHADONE URINE NEGATIVE (NEGATIVE); OPIATES URINE NEGATIVE (NEGATIVE); PHENCYCLIDINE URINE NEGATIVE (NEGATIVE)
[2020-07-02] MEDS ORDERED: NEUR100C PO (06:19)
[2020-07-02 07:15] VITALS: BP 123/82
--- NOTE | 2020-07-02 13:03 | ECGEPIP ---
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
== END 2020-07-02 07:53 | disposition home or self-care (01) ==
LOC: M ED 19:17
DX: F19.129 Other psychoactive substance abuse with intoxication, unspecified (principal); R20.2 Paresthesia of skin; F32.9 Major depressive disorder, single episode, unspecified; F17.200 Nicotine dependence, unspecified, uncomplicated; Z88.8 Allergy status to other drugs, medicaments and biological substances

== ENCOUNTER → 2020-08-21 | Outpatient (REF) | payer OTHER ==
[~2020-08-21] MED LIST changes: +NEUR100C PO
== END ==
LOC: M LAB REF 15:49
PROVIDERS: ATTEND Surgery
DX: A64 Unspecified sexually transmitted disease (principal)

== ENCOUNTER 2021-01-20 14:24 | Inpatient (IN) | payer MEDICAID, OTHER ==
[~2021-01-20] VITALS: Ht 162.6 cm; Wt 83.6 kg
--- OUTSIDE RECORDS SUMMARY | 2021-01-20 14:29 | CCD | Continuity of Care Document ---
Author Author Rose Mary ESPARZA M.D. Organization Unknown Address [address] [place] [address] Phone [phone] Problems Active Problems Provider Date Alcohol dependence Medical Onset: 03/22/2016 Social History Type Date Description Comments Sex Unknown Allergies, Adverse Reactions, Alerts Description No Known Drug Allergies Medications Active Medications SIG Qnty Indications Ordering Provide r Date Paroxetine HCL 10mg Tablets 1 by mouth every day 30tabs Jay Esparza M.D. 09/23/2020 Pantoprazole Sodium 40mg Tablets D R 1 by mouth every day 30tabs Jay Esparza M.D. 09/23/2020 Quetiapine Fumarate 100mg Tablets 1 tab by mouth at bedtime 30tabs Jay Esparza M.D. 09/23/2020 History Medications Paroxetine HCL 10mg Tablets 1 by mouth every day 30tabs Jay Esparza M.D. 09/23/2020 - 09/23/2020 Macrobid 100mg Capsules 1 tab by mouth twice a day 14caps Jay Esparza M.D. 08/24/2020 - 09/23/2020 Immunizations Description No Information Available Vital Signs Date Vital Result Comment 2020 10:29am BP Systolic 146 mmHg BP Diastolic 99 mmHg Heart Rate 89 /min Respiratory Rate 18 /min Body Temperature 97.6 F Weight 126.00 lb 02/17/2017 9:42am BP Systolic 130 mmHg BP Diastolic 86 mmHg Heart Rate 97 /min Respiratory Rate 18 /min Body Temperature 98.4 F Weight 170.00 lb Height 64 inches 5'4" Results Description No Information Available Procedures Description No Information Available Medical Devices Description No Information Available Encounters Description No Information Available Assessments Description No Information Available Plan of Treatment No Information Available Functional Status Description No Information Available Mental Status Description No Information Available Referrals Description No Information Available
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
[2021-01-20] MEDS ORDERED: QUEtiapine FUMARATE 25 MG TAB PO ONE (14:50)
[2021-01-20] MEDS ORDERED: NICOTINE 21MG/24HR 1 EA TRANSDERMAL TD ONE (15:20)
[2021-01-20 15:51] LABS: HEMATOCRIT 42.9 % (36.0-47.0); HEMOGLOBIN 14.8 g/dl (12.0-15.5); MEAN CORPUSCULAR HGB CONC 34.5 g/dl (32.0-36.5); MEAN CORPUSCULAR VOLUME 89.9 fl (80.0-96.0); PLATELET COUNT, AUTOMATED 251 10^3/uL (150-450); RED BLOOD COUNT 4.77 10^6/uL (4.00-5.40); WHITE BLOOD COUNT 7.5 10^3/uL (4.0-10.0)
[2021-01-20 16:22] LABS: AMPHETAMINES LEVEL URINE POSITIVE (NEGATIVE); BARBITURATES URINE NEGATIVE (NEGATIVE); BENZODIAZEPINES URINE NEGATIVE (NEGATIVE); CANNABINOIDS URINE POSITIVE (NEGATIVE); COCAINE METABOLITE URINE NEGATIVE (NEGATIVE); METHADONE URINE NEGATIVE (NEGATIVE); OPIATES URINE NEGATIVE (NEGATIVE); PHENCYCLIDINE URINE NEGATIVE (NEGATIVE)
[2021-01-20 16:36] LABS: ALBUMIN 4.1 GM/DL (3.2-5.2); ALT/SGPT 91 U/L (12-78); BILIRUBIN,DIRECT 0.1 MG/DL (0.0-0.2); BILIRUBIN,TOTAL 0.3 MG/DL (0.2-1.0); BLOOD UREA NITROGEN 3 MG/DL (7-18); CALCIUM LEVEL 9.4 MG/DL (8.5-10.1); CARBON DIOXIDE LEVEL 23 MEQ/L (21-32); CHLORIDE LEVEL 107 MEQ/L (98-107); CREATININE FOR GFR 0.71 MG/DL (0.55-1.30); GLOMERULAR FILTRATION RATE > 60.0 (>60); GLUCOSE, FASTING 97 MG/DL (70-100); POTASSIUM SERUM 3.5 MEQ/L (3.5-5.1); SODIUM LEVEL 141 MEQ/L (136-145); TOTAL PROTEIN 7.7 GM/DL (6.4-8.2)
[2021-01-20 16:37] LABS: ACETAMINOPHEN LEVEL 2.1 UG/ML (10.0-30.0); SALICYLATE LEVEL 6.4 MG/DL (5.0-30.0)
[2021-01-20 16:42] LABS: HCG, SERUM QUALITATIVE NEGATIVE (NEGATIVE)
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
[2021-01-20] MEDS ORDERED: HOME MED LIST COMPLETE! XX SCH (21:40)
[2021-01-20] MEDS ORDERED: GI COCKTAIL 50ML BTL(HYOSCYAMINE/MAALOX/LIDOCAINE VISCOUS)(1:3:1) PO ONE (22:00)
[2021-01-20 22:36] LABS: RSV AMPLIFICATION NEGATIVE (NEGATIVE)
[2021-01-20] MEDS ORDERED: MOM 30ML SUSPENSION UDC PO PRN (22:50)
[2021-01-20] MEDS ORDERED: traZODone 50 MG TAB PO PRN (22:50)
[2021-01-20] MEDS ORDERED: ACETAMINOPHEN TAB 650MG DOSE (2X325MG) PO PRN (22:50)
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
[2021-01-21] MEDS: PALIPERIDONE 3 MG ER TAB (INVEGA) PO SCH ×2 (00:56→21:02)
[2021-01-21] MEDS: MIRTAZAPINE 15 MG TAB PO PRN ×2 (00:56→21:02)
[2021-01-21 01:26] VITALS: BP 126/97
[2021-01-21] MEDS: LORazepam 2 MG TAB PO PRN ×2 (02:01→16:20)
[2021-01-21 06:38] VITALS: BP 135/88
[2021-01-21] MEDS ORDERED: INFLUENZA QUADRIVALENT PF VACCINE 0.5ML SYRINGE IM ONE (09:00)
[2021-01-21] MEDS: THIAMINE 100 MG TAB PO SCH ×2 (09:45→21:02)
[2021-01-21] MEDS: FOLIC ACID 1 MG TAB PO SCH (09:45)
[2021-01-21] MEDS: MULTIVITAMINS/MINERALS THERAP 1 TAB PO SCH (09:45)
[2021-01-21] MEDS: NICOTINE 21MG/24HR 1 EA TRANSDERMAL TD SCH (09:46)
[2021-01-21 13:39] VITALS: BP 136/84
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
[2021-01-21 16:12] VITALS: BP 132/89
--- NOTE | 2021-01-21 18:20 | HPEPDOC ---
[facility] Medical History & Physical Date of Admission Jan 21, 2021 Date of Service: Jan 21, 2021 Other Provider Jacki Maurer NP, psychiatry Attending Physician: TALON YBARRA DO History and Physical CHIEF COMPLAINT: Suicidal ideations HISTORY OF PRESENT ILLNESS: Patient is a 36-year-old female who presented to the emergency department with suicidal thoughts with overdose on heroin. Patient reports use of heroin 2 days ago. Patient was recently [facility] from [facility] and has been drinking quite heavily since then. Patient is tells me she has been drinking 1 to 2 L of vodka. Patient is still having SI stating that she does not want to be here anymore and wants to . Patient reports depression, anxiety and poor sleep. Patient denies any pain. Patient has been checked for hepatitis C but states that she does not have a history of hepatitis C. Patient was found to have elevated transaminases but denies any right upper quadrant pain. PAST MEDICAL HISTORY: 1. Polysubstance abuse. 2. Depression. 3. Anxiety 4. Borderline personality disorder PAST SURGICAL HISTORY: Denies any surgical history SOCIAL HISTORY: Patient smokes cigarettes and has been drinking alcohol heavily. Patient reports using heroin and marijuana FAMILY HISTORY: Patient denies any known family history of any chronic diseases. ALLERGIES: Please see below. REVIEW OF SYSTEMS: General: Patient denies fevers HEENT: Patient denies headaches Cardiovascular: Patient denies chest pain Respiratory: Patient denies shortness of breath, cough GI: Patient denies abdominal pain, nausea, vomiting, diarrhea : Patient denies increased frequency or pain with urination Extremities: Patient denies swelling or pain in extremities Neurological: Patient denies numbness or tingling in legs Skin: Patient denies any new rashes or lesions. Hematologic: Patient denies any easy bruising. Lymphatic: Patient denies any lumps lumps or bumps in neck, axilla, or groin HOME MEDICATIONS: Please see below. PHYSICAL EXAMINATION: VITAL SIGNS: Temperature 99, pulse 91, respiratory rate 16, blood pressure 132/89, pulse oximetry 100% on room air. General: Alert and oriented female patient who was sleeping in her room when I walked in. Patient not appear to be in any acute distress. HEENT: Normocephalic, atraumatic, moist mucous membranes. Neck: No lymphadenopathy or thyromegaly Cardiac: Regular rate and rhythm, no murmurs, normal S1, normal S2 Pulm: Clear to auscultation bilaterally. No wheezes, rhonchi, rales Abd: Nondistended, nontender to palpation, normal bowel sounds Ext: No edema bilateral lower extremities Neuro: Patient was able to move all 4 extremities on command and reported equal sensation light touch in all 4 extremities. Skin: Skin of the head, neck, upper and lower extremities was examined did not show any evidence of rash or wounds. LABORATORY DATA: See below. IMAGING: No imaging is been performed MICROBIOLOGY: Please see below. ASSESSMENT: 36-year-old female present to the emergency department with suicidal ideations and was found to have elevated transaminases. . PLAN: 1. Suicidal ideations. Patient will be treated by psychiatry. Treatment will continue with antidepressants per psychiatry. 2. Elevated transaminases. Patient has been tested for hepatitis C twice in the past with the most recent test being in January 2019. Because of her most recent use of IV drugs, we will retest her as well. The transaminases being elevated may be secondary to the patient's heavy alcohol use. We will trend the AST and ALT. Patient's bilirubin is normal at this time. We will continue to monitor. Disposition: Patient being discharged per psychiatry. Please reconsult hospitalist if the need arises. Thank you for this consult. I will follow laboratory studies tomorrow morning. Vital Signs Vital Signs Date Time Temp Pulse Resp B/P (MAP) Pulse Ox O2 Delivery O2 Flow Rate FiO2 01/21/21 16:12 99.0 115 16 132/89 (103) 90 Room Air Laboratory Data Labs 24H Laboratory Tests 2 01/20/21 21:32: Coronavirus (COVID-19)(PCR) NEGATIVE, Influenza Type A (RT-PCR) NEGATIVE, Influenza Type B (RT-PCR) NEGATIVE, Respiratory Syncytial Virus (PCR) NEGATIVE Home Medications No Active Prescriptions or Reported Meds Allergies Coded Allergies: trazodone (Verified Adverse Reaction, Mild, Rash, 11/28/19) A-FIB/CHADSVASC A-FIB History Current/History of A-Fib/PAF?: No TALON YBARRA DO Jan 21, 2021 18:20
[2021-01-21 18:45] VITALS: BP 132/89
[2021-01-21 20:43] VITALS: BP 135/86
[2021-01-21] MEDS: QUEtiapine FUMARATE 50MG TAB PO SCH (21:02)
[2021-01-22 02:25] VITALS: BP 140/79
[2021-01-22 06:24] VITALS: BP 132/84
[2021-01-22 06:46] VITALS: BP 132/84
[2021-01-22] MEDS: QUEtiapine FUMARATE 50MG TAB PO SCH ×2 (07:53→22:35)
[2021-01-22] MEDS: MULTIVITAMINS/MINERALS THERAP 1 TAB PO SCH (07:53)
[2021-01-22] MEDS: THIAMINE 100 MG TAB PO SCH ×2 (07:53→22:35)
[2021-01-22] MEDS: FOLIC ACID 1 MG TAB PO SCH (07:53)
[2021-01-22] MEDS: NICOTINE 21MG/24HR 1 EA TRANSDERMAL TD SCH (07:55)
[2021-01-22 08:58] LABS: ALBUMIN 3.1 GM/DL (3.2-5.2); ALT/SGPT 82 U/L (12-78); BILIRUBIN,TOTAL 0.3 MG/DL (0.2-1.0); BLOOD UREA NITROGEN 12 MG/DL (7-18); CALCIUM LEVEL 9.1 MG/DL (8.5-10.1); CARBON DIOXIDE LEVEL 27 MEQ/L (21-32); CHLORIDE LEVEL 108 MEQ/L (98-107); CREATININE FOR GFR 0.69 MG/DL (0.55-1.30); GLOMERULAR FILTRATION RATE > 60.0 (>60); GLUCOSE, FASTING 92 MG/DL (70-100); POTASSIUM SERUM 4.3 MEQ/L (3.5-5.1); SODIUM LEVEL 141 MEQ/L (136-145)
[2021-01-22 09:29] LABS: HEPATITIS B SURFACE ANTIGEN NEGATIVE (NEGATIVE)
[2021-01-22 10:06] LABS: HEPATITIS C VIRUS ABY INDEX > 11.0 INDEX (<0.8)
--- NOTE | 2021-01-22 17:06 | MHIPNPDOC ---
[facility] Progress Note Progress Note DATE OF SERVICE: 01/22/21 HISTORY: Patient is a 36 -year-old Single, , Unemployed, Undomiciled female, who self-presented to the ED with suicidal thoughts to overdose on heroin. Patient used heroin x 2 days ago. Also reporting depression anxiety and poor sleep. She reports visions that she is seeing the end of the world, people getting hurt or dying, states that she had visions of Covid when she was younger. She reports a long history of seeing these visions that her scaring her and feels that she is seeing things that will happen in the future. Admits to using heroin, zach, cannabis and drinking 2 L of vodka a day. Blood alcohol was 0.12. PER ED REPORT: Pt states that she self-presented to the ED due to SI. Pt states "I don't want to be here anymore. I want to ." Pt states that she has done heroin in an attempt to OD four times this week. Pt reports two previous suicide attempts via OD. She has a hx of self-harm & over the past two weeks has been using a needle to cut herself. Pt denies HI. Pt states that she has command AH that tell her to kill herself. Pt states that she has visions of the world ending & states that the government is planning to do things to make the world end. Pt states that she does not want to have these visions anymore. Pt was recently released from [facility] & is homeless. Pt c/o depressed mood, anxiety, poor concentration, decreased energy levels, poor sleep, & poor appetite. Pt has a hx of depression, anxiety, & substance abuse with one admission. She does not currently have OP tx. Pt reports that she drinks 2 liters of vodka daily. Her JACKELYN was 0.120 upon arrival. She reports daily MJ & zach use. She also reports that she has used heroin several times since she was released from [facility] & has used heroin to attempt suicide. Pt's tox screen was positive for amphetamines & cannabis. VITAL SIGNS: See below. NEW TEST RESULTS: None CURRENT MEDICATIONS: See below. MENTAL STATUS EXAMINATION: Patient is a 36 -year-old Single, , Unemployed, Undomiciled female, who self-presented to the ED with suicidal thoughts to overdose on heroin. Patient used heroin x 2 days ago. General Appearance: unkempt, disheveled, appears stated age, hospital scrubs/clothing Build: average Demeanor: hostile (Mild), mistrustful, guarded Eye Contact: average Activity: hostile Behavior: agitated (Mildly) Speech: clear, reg/rate,rhythm,volume Mood: depressed, anxious Affect: constricted Thought Process: logical/linear Thought Content (Delusions): none reported Thought Content (Other): none reported Thought Content (Aggressive): none reported Perception (Hallucinations): visual (Reports having visions of the future) Perception (Other): none reported Cognition(Intelligence Est.): average Oriented: Awake, Alert, Oriented times three Insight: fair Judgment: Fair Psychosis: Denies DIAGNOSES: Major depressive disorder, recurrent, moderate Rule out bipolar depressed Substance use disorder (cannabis, heroin, alcohol) Generalized anxiety disorder Borderline personality disorder ASSESSMENT: Patient was not arousable when provider attempted to see her. According to staff patient would only answer minimal questions. Has been sleeping all day, patient reporting auditory hallucinations to the primary RN. States that she wants to sleep. No reports of withdrawal symptoms from staff, no reports of psychotic symptoms, delusions or hypomania. Discussed with primary RN any critical issues, patient has not reported suicidal ideations but again has been sleeping, isolative and withdrawn MANAGEMENT PLAN: Continue all medications as prescribed TIME SPENT: 15 minutes. Vital Signs Vital Signs Date Time Temp Pulse Resp B/P (MAP) Pulse Ox O2 Delivery O2 Flow Rate FiO2 01/22/21 06:46 96 132/84 01/22/21 06:24 97.4 18 99 Room Air Laboratory Data 24H Labs Laboratory Tests 2 01/22/21 07:03: Anion Gap 6L, Glomerular Filtration Rate > 60.0, Calcium Level 9.1, Total Bilirubin 0.3, Aspartate Amino Transf (AST/SGOT) 74H, Alanine Aminotransferase (ALT/SGPT) 82H, Alkaline Phosphatase 96, Total Protein 6.0#L, Albumin 3.1#L, Albumin/Globulin Ratio 1.1L, Hepatitis B Surface Antigen NEGATIVE, Hepatitis C Antibody Index > 11.0H CBC/BMP Laboratory Tests 01/22/21 07:03 Current Medications Current Medications Medications (Trade) Dose Ordered Sig/Hernan Route PRN Reason Start Time Stop Time Status Last Admin Dose Admin Acetaminophen (Tylenol Tab) 650 mg Q6HP PRN PO HEADACHE or MILD DISCOMFORT 11/10/21 22:50 01/21/21 00:57 Al Hydrox/Mg Hydrox/Simethicone (Mylanta) 30 ml Q4HP PRN PO HEARTBURN/INDIGESTION 01/20/21 22:50 Folic Acid (Folic Acid) 1 mg DAILY PO 01/21/21 09:00 01/22/21 07:53 Home Med (Home Med List Complete!) ASDIRECTED XX 01/20/21 21:40 01/20/21 21:42 DC Lorazepam (Ativan) 2 mg ASDIRECTED PRN PO SEE PROTOCOL 01/20/21 22:50 01/21/21 16:20 Magnesium Hydroxide (Milk Of Magnesia) 30 ml DAILYPRN PRN PO CONSTIPATION 01/20/21 22:50 Mirtazapine (Remeron) 15 mg QHS PRN PO insomnia 01/20/21 23:00 01/21/21 21:02 Multivitamins (Theragram-M) 1 tab DAILY PO 01/21/21 09:00 01/22/21 07:53 Nicotine (Nicoderm Cq 21mg) 1 patch DAILY TD 01/21/21 09:00 01/22/21 07:55 Olanzapine (ZyPREXA ZYDIS) 5 mg Q6HP PRN PO AGITATION 01/20/21 22:50 Paliperidone (Invega) 3 mg QHS PO 01/20/21 21:00 01/21/21 21:02 Quetiapine Fumarate (SEROquel) 50 mg BID PO 01/21/21 21:00 01/22/21 07:53 Thiamine HCl (Thiamine HCl) 100 mg BID PO 01/21/21 09:00 01/24/21 08:59 01/22/21 07:53 Trazodone HCl (Desyrel) 50 mg QHSP PRN PO INSOMNIA 01/20/21 22:50 UNV Allergies Coded Allergies: trazodone (Verified Adverse Reaction, Mild, Rash, 11/28/19) ROLANDO SOUZA JAMB CUTTER Jan 22, 2021 17:06
[2021-01-22 18:32] VITALS: BP 134/89
[2021-01-22] MEDS: PALIPERIDONE 3 MG ER TAB (INVEGA) PO SCH (22:34)
[2021-01-23 06:00] VITALS: BP 111/72
[2021-01-23 06:18] VITALS: BP 111/72
[2021-01-23] MEDS: MULTIVITAMINS/MINERALS THERAP 1 TAB PO SCH (09:37)
[2021-01-23] MEDS: QUEtiapine FUMARATE 50MG TAB PO SCH ×2 (09:37→20:34)
[2021-01-23] MEDS: THIAMINE 100 MG TAB PO SCH ×2 (09:37→20:34)
[2021-01-23] MEDS: NICOTINE 21MG/24HR 1 EA TRANSDERMAL TD SCH (09:37)
[2021-01-23] MEDS: FOLIC ACID 1 MG TAB PO SCH (09:37)
[2021-01-23 13:40] VITALS: BP 132/83
[2021-01-23] MEDS: OLANZapine ORAL DISINTEGRATING TAB 5MG PO PRN (15:44)
[2021-01-23 16:40] VITALS: BP 114/56
--- NOTE | 2021-01-23 17:34 | MHIPNPDOC ---
[facility] Progress Note Progress Note DATE OF SERVICE: 01/23/21 HISTORY: Patient is a 36 -year-old Single, , Unemployed, Undomiciled female, who self-presented to the ED with suicidal thoughts to overdose on heroin. Patient used heroin x 2 days ago. Also reporting depression anxiety and poor sleep. She reports visions that she is seeing the end of the world, people getting hurt or dying, states that she had visions of Covid when she was younger. She reports a long history of seeing these visions that her scaring her and feels that she is seeing things that will happen in the future. Admits to using heroin, zach, cannabis and drinking 2 L of vodka a day. Blood alcohol was 0.12. INTERVAL HISTORY: Rose Mary reports that she is feeling somewhat better with the addition of Invega to her regimen. She continues to reports high levels of anxiety, restlessness, auditory hallucinations consistent with what was reported on admission. We spent significant time today discussing her past trials of medications, noting that she is not on any medications for anxiety at this point in time. She is interested in retrying Prozac along with the addition of buspirone for management of anxiety. We discussed possible options for management of her hallucinations and she is interested in the idea of staying with Invega due to the ability to switch to an injectable form. Additionally she feels that she would need help in controlling her cravings for alcohol, she admits that she will often mask her symptoms with providers in order to build to get out drink and that she did longer wants to engage in the type of behavior. She feels that acamprosate and naltrexone have been unhelpful in the past and is interested in trying disulfiram, which she remembers her mother having used before, and believes that she would be able to continue taking this with the knowledge that if she were to drink she would be horrifically sick and feeling that that would help prevent her from engaging in these activities. VITAL SIGNS: See below. NEW TEST RESULTS: Reviewed transaminases at admission and those drawn yesterday, there is been a downward trend in the results. CURRENT MEDICATIONS: See below. MENTAL STATUS EXAMINATION: Patient is a 36-year old female, who is dressed in hospital clothing, slightly disheveled with some stains seen. Speech: Is spontaneous, with some mumbling, normal rate rhythm and volume. Language skills are intact. Thought processes including: Logical, linear, goal-directed. Thought content: Feels that she needs additional help with her anxiety and would need additional supports in order to prevent herself from turning to drink in the future is interested in trying medications that may be helpful for this. Abstract reasoning, and computation: Appears intact. Description of associations : Linear. Description of abnormal or psychotic thoughts: Reports auditory and visual hallucinations, states they have been [facility]; denies suicidal or homicidal ideation at present. Judgment: Poor. Insight: Fair. Orientation: X3. Recent and remote memory: Intact. Attention span and concentration: Intact. Mood: "Pretty anxious". Affect: Anxious, restricted, congruent with stated mood. DIAGNOSES: Major depressive disorder, recurrent, moderate Rule out bipolar depressed Substance use disorder (cannabis, heroin, alcohol) Generalized anxiety disorder Borderline personality disorder ASSESSMENT: Rose Mary is a 36-year-old female with a significant history of alcohol abuse. She also reports high levels of anxiety which prevented her from interacting well with people. She identifies that medications have been infrequ ently helpful in the past, however she is still under the impression that the medications may be helpful for her. She is interested in trying to get better control of her symptoms and would like to continue with additional treatment. We reviewed multiple different types of medications with her and discussed the risk associated with disulfiram including elevation of transaminases and possibility of liver failure. Additionally we discussed the side effects of increasing Invega, as well as adding fluoxetine and buspirone to her regimen. Rose Mary feels that she would like to start any medications and is aware of the risks, she will inform staff if she begins experiencing side effects and we will manage as needed. MANAGEMENT PLAN: Increase Invega to 6 mg nightly, increase Seroquel to 50 mg every morning and 100 mg nightly, start fluoxetine 20 mg daily, start buspirone 5 mg twice daily, start disulfiram 250 mg daily; will redraw liver enzymes scheduled for Monday. TIME SPENT: 25 minutes. Vital Signs Vital Signs Date Time Temp Pulse Resp B/P (MAP) Pulse Ox O2 Delivery O2 Flow Rate FiO2 01/23/21 16:40 97.6 80 16 114/56 (75) 98 Room Air Current Medications Current Medications Medications (Trade) Dose Ordered Sig/Hernan Route PRN Reason Start Time Stop Time Status Last Admin Dose Admin Acetaminophen (Tylenol Tab) 650 mg Q6HP PRN PO HEADACHE or MILD DISCOMFORT 01/20/21 22:50 01/21/21 00:57 Al Hydrox/Mg Hydrox/Simethicone (Mylanta) 30 ml Q4HP PRN PO HEARTBURN/INDIGESTION 01/20/21 22:50 Folic Acid (Folic Acid) 1 mg DAILY PO 01/21/21 09:00 01/23/21 09:37 Home Med (Home Med List Complete!) ASDIRECTED XX 01/20/21 21:40 01/20/21 21:42 DC Lorazepam (Ativan) 2 mg ASDIRECTED PRN PO SEE PROTOCOL 01/20/21 22:50 01/21/21 16:20 Magnesium Hydroxide (Milk Of Magnesia) 30 ml DAILYPRN PRN PO CONSTIPATION 01/20/21 22:50 Mirtazapine (Remeron) 15 mg QHS PRN PO insomnia 01/20/21 23:00 01/21/21 21:02 Multivitamins (Theragram-M) 1 tab DAILY PO 01/21/21 09:00 01/23/21 09:37 Nicotine (Nicoderm Cq 21mg) 1 patch DAILY TD 01/21/21 09:00 01/23/21 09:37 Olanzapine (ZyPREXA ZYDIS) 5 mg Q6HP PRN PO AGITATION 01/20/21 22:50 01/23/21 15:44 Paliperidone (Invega) 3 mg QHS PO 01/20/21 21:00 01/22/21 22:34 Quetiapine Fumarate (SEROquel) 50 mg BID PO 01/21/21 21:00 01/23/21 09:37 Thiamine HCl (Thiamine HCl) 100 mg BID PO 01/21/21 09:00 01/24/21 08:59 01/23/21 09:37 Trazodone HCl (Desyrel) 50 mg QHSP PRN PO INSOMNIA 01/20/21 22:50 UNV Allergies Coded Allergies: trazodone (Verified Adverse Reaction, Mild, Rash, 11/28/19) ОЛЕГ MICHELE MD Jan 23, 2021 17:34
[2021-01-23] MEDS: busPIRone 5 MG TAB PO SCH (20:34)
[2021-01-23] MEDS: PALIPERIDONE 6 MG ER TAB (INVEGA) PO SCH (20:34)
[2021-01-24 06:38] VITALS: BP 143/67
[2021-01-24] MEDS: NICOTINE 21MG/24HR 1 EA TRANSDERMAL TD SCH (09:46)
[2021-01-24] MEDS: FLUoxetine 20 MG CAP PO SCH (09:46)
[2021-01-24] MEDS: QUEtiapine FUMARATE 50MG TAB PO SCH ×2 (09:47→21:16)
[2021-01-24] MEDS: busPIRone 5 MG TAB PO SCH ×2 (09:47→21:16)
[2021-01-24] MEDS: MAALOX 30 ML SUSP *UDC PO PRN ×2 (12:37→17:11)
[2021-01-24 16:34] VITALS: BP 111/60
[2021-01-24] MEDS ORDERED: CALCIUM CARBONATE 500 MG CHEW U/D PO ONE (19:15)
[2021-01-24] MEDS: PALIPERIDONE 6 MG ER TAB (INVEGA) PO SCH (21:16)
[2021-01-24] MEDS: MIRTAZAPINE 15 MG TAB PO PRN (21:16)
[2021-01-24] MEDS: OLANZapine ORAL DISINTEGRATING TAB 5MG PO PRN (21:17)
[2021-01-25 06:28] VITALS: BP 114/69
[2021-01-25] MEDS: NICOTINE 21MG/24HR 1 EA TRANSDERMAL TD SCH (09:42)
[2021-01-25] MEDS: FLUoxetine 20 MG CAP PO SCH (09:42)
[2021-01-25] MEDS: busPIRone 5 MG TAB PO SCH ×2 (09:42→20:28)
[2021-01-25] MEDS: QUEtiapine FUMARATE 50MG TAB PO SCH ×2 (09:42→20:28)
--- NOTE | 2021-01-25 15:27 | MHIPNPDOC ---
[facility] Progress Note Progress Note DATE OF SERVICE: 01/25/21 HISTORY: Patient is a 36 -year-old Single, , Unemployed, Undomiciled female, who self-presented to the ED with suicidal thoughts to overdose on heroin. Patient used heroin x 2 days ago. Also reporting depression anxiety and poor sleep. She reports visions that she is seeing the end of the world, people getting hurt or dying, states that she had visions of Covid when she was younger. She reports a long history of seeing these visions that her scaring her and feels that she is seeing things that will happen in the future. Admits to using heroin, zach, cannabis and drinking 2 L of vodka a day. Blood alcohol was 0.12. INTERVAL HISTORY: VITAL SIGNS: See below. NEW TEST RESULTS: No new labs CURRENT MEDICATIONS: See below. MENTAL STATUS EXAMINATION: Patient is a 36-year old female, who is dressed in hospital clothing, slightly disheveled with some stains seen. Speech: Is spontaneous, normal rate rhythm and volume. Language skills are intact. Thought processes including: Logical, linear Thought content: Very sleepy today, having a tough time getting out of bed and moving around.. Abstract reasoning, and computation: Appears intact. Description of associations: Linear. Description of abnormal or psychotic thoughts: Denies auditory and visual hallucinations, reports improvement since being in the hospital; denies suicidal or homicidal ideation at present. Judgment: Fair Insight: Fair. Orientation: X3. Recent and remote memory: Intact. Attention span and concentration: Intact. Mood: Neutral. Affect: Drowsy but slightly more euthymic in mood and affect DIAGNOSES: Major depressive disorder, recurrent, moderate Rule out bipolar depressed Substance use disorder (cannabis, heroin, alcohol) Generalized anxiety disorder Borderline personality disorder ASSESSMENT: Patient is reporting improvement in depression, anxiety and auditory hallucinations. She remains very drowsy today, reduced Invega to 3 mg at HS - states that her sleep has improved. Today she stated that is hopeful to be able to find housing with [facility]. States that she should be able to receive services due to her recent incarceration. At this time, she does remain mildly depressed and although her anxiety has improved, she is not at baseline. MANAGEMENT PLAN: Continue medications as prescribed. Patient continues to have sedation patient is agreeable to reducing dose of Invega to 3 mg TIME SPENT: 25 minutes Vital Signs Vital Signs Date Time Temp Pulse Resp B/P (MAP) Pulse Ox O2 Delivery O2 Flow Rate FiO2 01/25/21 06:28 98.2 77 20 114/69 (84) 97 Room Air Current Medications Current Medications Medications (Trade) Dose Ordered Sig/Hernan Route PRN Reason Start Time Stop Time Status Last Admin Dose Admin Acetaminophen (Tylenol Tab) 650 mg Q6HP PRN PO HEADACHE or MILD DISCOMFORT 01/20/21 22:50 01/21/21 00:57 Al Hydrox/Mg Hydrox/Simethicone (Mylanta) 30 ml Q4HP PRN PO HEARTBURN/INDIGESTION 01/20/21 22:50 01/24/21 17:11 Buspirone HCl (Buspar) 5 mg BID PO 01/23/21 21:00 01/25/21 09:42 Fluoxetine HCl (PROzac) 20 mg DAILY PO 01/24/21 09:00 01/25/21 09:42 Folic Acid (Folic Acid) 1 mg DAILY PO 01/21/21 09:00 01/24/21 05:37 DC 01/23/21 09:37 Home Med (Home Med List Complete!) ASDIRECTED XX 01/20/21 21:40 01/20/21 21:42 DC Lorazepam (Ativan) 2 mg ASDIRECTED PRN PO SEE PROTOCOL 01/20/21 22:50 01/24/21 05:37 DC 01/21/21 16:20 Magnesium Hydroxide (Milk Of Magnesia) 30 ml DAILYPRN PRN PO CONSTIPATION 01/20/21 22:50 Mirtazapine (Remeron) 15 mg QHS PRN PO insomnia 01/20/21 23:00 01/24/21 21:16 Multivitamins (Theragram-M) 1 tab DAILY PO 01/21/21 09:00 01/24/21 05:37 DC 01/23/21 09:37 Nicotine (Nicoderm Cq 21mg) 1 patch DAILY TD 01/21/21 09:00 01/25/21 09:42 Olanzapine (ZyPREXA ZYDIS) 5 mg Q6HP PRN PO AGITATION 01/20/21 22:50 01/24/21 21:17 Paliperidone (Invega) 3 mg QHS PO 01/20/21 21:00 01/23/21 17:37 DC 01/22/21 22:34 Paliperidone (Invega) 6 mg QHS PO 01/23/21 21:00 01/24/21 21:16 Quetiapine Fumarate (SEROquel) 50 mg BID PO 01/21/21 21:00 01/25/21 09:42 Thiamine HCl (Thiamine HCl) 100 mg BID PO 01/21/21 09:00 01/24/21 05:37 DC 01/23/21 20:34 Trazodone HCl (Desyrel) 50 mg QHSP PRN PO INSOMNIA 01/20/21 22:50 UNV Allergies Coded Allergies: trazodone (Verified Adverse Reaction, Mild, Rash, 11/28/19) ROLANDO SOUZA NP Jan 25, 2021 13:28
[2021-01-25] MEDS: OLANZapine ORAL DISINTEGRATING TAB 5MG PO PRN ×2 (16:29→22:30)
[2021-01-25 19:17] VITALS: BP 128/69
[2021-01-25] MEDS: MAALOX 30 ML SUSP *UDC PO PRN (20:27)
[2021-01-25] MEDS: PALIPERIDONE 3 MG ER TAB (INVEGA) PO SCH (20:28)
[2021-01-25] MEDS: MIRTAZAPINE 15 MG TAB PO PRN (20:28)
[2021-01-26 06:26] VITALS: BP 110/60
[2021-01-26] MEDS: FLUoxetine 20 MG CAP PO SCH (11:15)
[2021-01-26] MEDS: busPIRone 5 MG TAB PO SCH (11:15)
[2021-01-26] MEDS: QUEtiapine FUMARATE 50MG TAB PO SCH ×2 (11:15→20:24)
[2021-01-26] MEDS: NICOTINE 21MG/24HR 1 EA TRANSDERMAL TD SCH (11:17)
[2021-01-26] MEDS: OLANZapine ORAL DISINTEGRATING TAB 5MG PO PRN (14:35)
--- NOTE | 2021-01-26 16:04 | MHIPNPDOC ---
[facility] Progress Note Progress Note DATE OF SERVICE: 01/26/21 HISTORY: greg is a 36 -year-old Single, , Unemployed, Undomiciled female, who self-presented to the ED with suicidal thoughts to overdose on heroin. Patient used heroin x 2 days ago. Also reporting depression anxiety and poor sleep. She reports visions that she is seeing the end of the world, people getting hurt or dying, states that she had visions of Covid when she was younger. She reports a long history of seeing these visions that her scaring her and feels that she is seeing things that will happen in the future. Admits to using heroin, zach, cannabis and drinking 2 L of vodka a day. Blood alcohol was 0.12. INTERVAL HISTORY: VITAL SIGNS: See below. NEW TEST RESULTS: No new labs CURRENT MEDICATIONS: See below. MENTAL STATUS EXAMINATION: Patient is a 36-year old female, who is dressed in hospital clothing, slightly disheveled with some stains seen. Speech: Is spontaneous, normal rate rhythm and volume. Language skills are intact. Thought processes including: Logical, linear Thought content: reports less depressed but reports continued anxiety, no SI/HI, No auditory of visual hallucinations Abstract reasoning, and computation: Appears intact. Description of associations: Linear. Description of abnormal or psychotic thoughts: Denies auditory and visual hallucinations, reports improvement since being in the hospital; denies suicidal or homicidal ideation at present. Judgment: Fair Insight: Fair. Orientation: X3. Recent and remote memory: Intact. Attention span and concentration: Intact. Mood: Neutral. Affect: euthymic DIAGNOSES: Major depressive disorder, recurrent, moderate Rule out bipolar depressed Substance use disorder (cannabis, heroin, alcohol) Generalized anxiety disorder Borderline personality disorder ASSESSMENT: Patient is reporting a decrease in her depression but continued anxiety, she still reports feeling like she can't sleep states that she was awake until 2 or 3 in the AM. She is requesting her Seroquel to be increased. Seroquel was increased to 150 mg at HS. She is agreeable to an increase in Buspirone to 10 mg BID. States that all other medications are doing well for her. Feels that would be good day for discharge to [facility] for housing. Reports that she wants to be able to have a day to have DSS open if there are any issues after she is seen on . We discussed her medications, indications and possible side effects. She reports no adverse or side effects. Wants to return to [facility] for services. MANAGEMENT PLAN: Continue medications as prescribed. Discharge . TIME SPENT: 25 minutes Vital Signs Vital Signs Date Time Temp Pulse Resp B/P (MAP) Pulse Ox O2 Delivery O2 Flow Rate FiO2 01/26/21 06:26 98.4 75 18 110/60 (77) 97 Room Air Current Medications Current Medications Medications (Trade) Dose Ordered Sig/Hernan Route PRN Reason Start Time Stop Time Status Last Admin Dose Admin Acetaminophen (Tylenol Tab) 650 mg Q6HP PRN PO HEADACHE or MILD DISCOMFORT 01/20/21 22:50 01/21/21 00:57 Al Hydrox/Mg Hydrox/Simethicone (Mylanta) 30 ml Q4HP PRN PO HEARTBURN/INDIGESTION 01/20/21 22:50 01/25/21 20:27 Buspirone HCl (Buspar) 5 mg BID PO 01/23/21 21:00 01/26/21 11:31 DC 01/26/21 11:15 Buspirone HCl (Buspar) 10 mg BID PO 01/26/21 21:00 UNV Fluoxetine HCl (PROzac) 20 mg DAILY PO 01/24/21 09:00 01/26/21 11:15 Folic Acid (Folic Acid) 1 mg DAILY PO 01/21/21 09:00 01/24/21 05:37 DC 01/23/21 09:37 Home Med (Home Med List Complete!) ASDIRECTED XX 01/20/21 21:40 01/20/21 21:42 DC Lorazepam (Ativan) 2 mg ASDIRECTED PRN PO SEE PROTOCOL 01/20/21 22:50 01/24/21 05:37 DC 01/21/21 16:20 Magnesium Hydroxide (Milk Of Magnesia) 30 ml DAILYPRN PRN PO CONSTIPATION 01/20/21 22:50 Mirtazapine (Remeron) 15 mg QHS PRN PO insomnia 01/20/21 23:00 01/25/21 20:28 Multivitamins (Theragram-M) 1 tab DAILY PO 01/21/21 09:00 01/24/21 05:37 DC 01/23/21 09:37 Nicotine (Nicoderm Cq 21mg) 1 patch DAILY TD 01/21/21 09:00 01/26/21 11:17 Olanzapine (ZyPREXA ZYDIS) 5 mg Q6HP PRN PO AGITATION 01/20/21 22:50 01/25/21 22:30 Paliperidone (Invega) 3 mg QHS PO 01/20/21 21:00 01/23/21 17:37 DC 01/22/21 22:34 Paliperidone (Invega) 3 mg QHS PO 01/25/21 21:00 01/25/21 20:28 Paliperidone (Invega) 6 mg QHS PO 01/23/21 21:00 01/25/21 15:20 DC 01/24/21 21:16 Quetiapine Fumarate (SEROquel) 50 mg BID PO 01/21/21 21:00 01/26/21 11:29 DC 01/26/21 11:15 Quetiapine Fumarate (SEROquel) 50 mg QAM PO 01/27/21 09:00 Quetiapine Fumarate (SEROquel) 150 mg QHS PO 01/26/21 21:00 Thiamine HCl (Thiamine HCl) 100 mg BID PO 01/21/21 09:00 01/24/21 05:37 DC 01/23/21 20:34 Trazodone HCl (Desyrel) 50 mg QHSP PRN PO INSOMNIA 01/20/21 22:50 UNV Allergies Coded Allergies: trazodone (Verified Adverse Reaction, Mild, Rash, 11/28/19) ROLANDO SOUZA NP Jan 26, 2021 11:33
[2021-01-26] MEDS: MAALOX 30 ML SUSP *UDC PO PRN (17:54)
[2021-01-26 18:46] VITALS: BP 128/75
[2021-01-26] MEDS: PALIPERIDONE 3 MG ER TAB (INVEGA) PO SCH (20:24)
[2021-01-26] MEDS: busPIRone 10 MG TAB PO SCH (20:24)
[2021-01-26] MEDS: MIRTAZAPINE 15 MG TAB PO PRN (20:24)
[2021-01-27 06:00] VITALS: BP 148/66
[2021-01-27] MEDS: NICOTINE 21MG/24HR 1 EA TRANSDERMAL TD SCH (09:00)
[2021-01-27] MEDS: FLUoxetine 20 MG CAP PO SCH (09:28)
[2021-01-27] MEDS: busPIRone 10 MG TAB PO SCH ×2 (09:28→20:15)
[2021-01-27] MEDS: QUEtiapine FUMARATE 50MG TAB PO SCH ×2 (09:29→20:15)
[2021-01-27] MEDS ORDERED: FLUO20CA22 PO (11:52)
[2021-01-27] MEDS ORDERED: MIRT-62 PO (11:52)
[2021-01-27] MEDS ORDERED: QUET50TA4 PO ×2 (11:52)
[2021-01-27] MEDS ORDERED: NICO21PAT TD (11:52)
[2021-01-27] MEDS ORDERED: BUSP10TA PO (11:52)
[2021-01-27] MEDS: OLANZapine ORAL DISINTEGRATING TAB 5MG PO PRN ×2 (14:20→20:14)
--- NOTE | 2021-01-27 16:10 | MHIPNPDOC ---
[facility] Progress Note Progress Note DATE OF SERVICE: 01/27/21 HISTORY: Patient is a 36 -year-old Single, , Unemployed, Undomiciled female, who self-presented to the ED with suicidal thoughts to overdose on heroin. Patient used heroin x 2 days ago. Also reporting depression anxiety and poor sleep. She reports visions that she is seeing the end of the world, people getting hurt or dying, states that she had visions of Covid when she was younger. She reports a long history of seeing these visions that her scaring her and feels that she is seeing things that will happen in the future. Admits to using heroin, zach, cannabis and drinking 2 L of vodka a day. Blood alcohol was 0.12. INTERVAL HISTORY: VITAL SIGNS: See below. NEW TEST RESULTS: No new labs CURRENT MEDICATIONS: See below. MENTAL STATUS EXAMINATION: Patient is a 36-year old female, who is dressed in hospital clothing, slightly disheveled with some stains seen. Speech: Is spontaneous, normal rate rhythm and volume. Language skills are intact. Thought processes including: Logical, linear Thought content: reports less depressed but reports continued anxiety, no SI/HI, No auditory of visual hallucinations Abstract reasoning, and computation: Appears intact. Description of associations: Linear. Description of abnormal or psychotic thoughts: Denies auditory and visual hallucinations, reports improvement since being in the hospital; denies suicidal or homicidal ideation at present. Judgment: Fair Insight: Fair. Orientation: X3. Recent and remote memory: Intact. Attention span and concentration: Intact. Mood: Neutral. Affect: euthymic DIAGNOSES: Major depressive disorder, recurrent, moderate Rule out bipolar depressed Substance use disorder (cannabis, heroin, alcohol) Generalized anxiety disorder Borderline personality disorder ASSESSMENT: Patient is alert and oriented, has improved mood and affect. She reports a decrease in depression. Reports mild to moderate anxiety with regards to being discharged to [facility] and hopeful for housing. She does report that her sleep has improved with the Seroquel increase to 150 mg. We discussed Invega and Seroquel patient is agreeable to discontinuing Invega. She requests Seroquel 50 mg 3 times a day for her continued anxiety, and Seroquel 150 mg at at bedtime for insomnia. She will be continued on all her other medications. Patient reports good effects of the current regimen. She denies any side effects or adverse reactions, reports that she is stable on her current medicationsverbalized understanding on dosages, indications, frequency, and refills. She is feeling stable, wants to be discharged tomorrow. MANAGEMENT PLAN: Continue medications as prescribed. Discharge . Time spent: 25 minutes Vital Signs Vital Signs Date Time Temp Pulse Resp B/P (MAP) Pulse Ox O2 Delivery O2 Flow Rate FiO2 01/27/21 06:00 98.2 76 16 148/66 (93) 98 01/26/21 06:26 Room Air Current Medications Current Medications Medications (Trade) Dose Ordered Sig/Hernan Route PRN Reason Start Time Stop Time Status Last Admin Dose Admin Acetaminophen (Tylenol Tab) 650 mg Q6HP PRN PO HEADACHE or MILD DISCOMFORT 01/20/21 22:50 01/21/21 00:57 Al Hydrox/Mg Hydrox/Simethicone (Mylanta) 30 ml Q4HP PRN PO HEARTBURN/INDIGESTION 01/20/21 22:50 01/26/21 17:54 Buspirone HCl (Buspar) 5 mg BID PO 01/23/21 21:00 01/26/21 11:31 DC 01/26/21 11:15 Buspirone HCl (Buspar) 10 mg BID PO 01/26/21 21:00 01/27/21 09:28 Fluoxetine HCl (PROzac) 20 mg DAILY PO 01/24/21 09:00 01/27/21 09:28 Folic Acid (Folic Acid) 1 mg DAILY PO 01/21/21 09:00 01/24/21 05:37 DC 01/23/21 09:37 Home Med (Home Med List Complete!) ASDIRECTED XX 01/20/21 21:40 01/20/21 21:42 DC Lorazepam (Ativan) 2 mg ASDIRECTED PRN PO SEE PROTOCOL 01/20/21 22:50 01/24/21 05:37 DC 01/21/21 16:20 Magnesium Hydroxide (Milk Of Magnesia) 30 ml DAILYPRN PRN PO CONSTIPATION 01/20/21 22:50 Mirtazapine (Remeron) 15 mg QHS PRN PO insomnia 01/20/21 23:00 01/26/21 20:24 Multivitamins (Theragram-M) 1 tab DAILY PO 01/21/21 09:00 01/24/21 05:37 DC 01/23/21 09:37 Nicotine (Nicoderm Cq 21mg) 1 patch DAILY TD 01/21/21 09:00 01/26/21 11:17 Olanzapine (ZyPREXA ZYDIS) 5 mg Q6HP PRN PO AGITATION 01/20/21 22:50 01/27/21 14:20 Paliperidone (Invega) 3 mg QHS PO 01/20/21 21:00 01/23/21 17:37 DC 01/22/21 22:34 Paliperidone (Invega) 3 mg QHS PO 01/25/21 21:00 01/26/21 20:24 Paliperidone (Invega) 6 mg QHS PO 01/23/21 21:00 01/25/21 15:20 DC 01/24/21 21:16 Quetiapine Fumarate (SEROquel) 50 mg BID PO 01/21/21 21:00 01/26/21 11:29 DC 01/26/21 11:15 Quetiapine Fumarate (SEROquel) 50 mg QAM PO 01/27/21 09:00 01/27/21 09:29 Quetiapine Fumarate (SEROquel) 150 mg QHS PO 01/26/21 21:00 01/26/21 20:24 Thiamine HCl (Thiamine HCl) 100 mg BID PO 01/21/21 09:00 01/24/21 05:37 DC 01/23/21 20:34 Trazodone HCl (Desyrel) 50 mg QHSP PRN PO INSOMNIA 01/20/21 22:50 UNV Allergies Coded Allergies: trazodone (Verified Adverse Reaction, Mild, Rash, 11/28/19) ROLANDO SOUZA [employer] Jan 27, 2021 16:10
[2021-01-27 17:54] VITALS: BP 130/72
[2021-01-27] MEDS: MAALOX 30 ML SUSP *UDC PO PRN (19:16)
[2021-01-27] MEDS: PALIPERIDONE 3 MG ER TAB (INVEGA) PO SCH (20:15)
[2021-01-27] MEDS: MIRTAZAPINE 15 MG TAB PO PRN (20:15)
[2021-01-28 06:52] VITALS: BP 104/68
[2021-01-28] MEDS: NICOTINE 21MG/24HR 1 EA TRANSDERMAL TD SCH (09:00)
[2021-01-28] MEDS: FLUoxetine 20 MG CAP PO SCH (09:03)
[2021-01-28] MEDS: busPIRone 10 MG TAB PO SCH (09:03)
[2021-01-28] MEDS: OLANZapine ORAL DISINTEGRATING TAB 5MG PO PRN (09:03)
[2021-01-28] MEDS: QUEtiapine FUMARATE 50MG TAB PO SCH (09:03)
--- NOTE | 2021-01-28 09:45 | MHDSPDOC ---
[facility] Discharge Summary Discharge Summary DATE OF ADMISSION: Jan 20, 2021 at 22:50 DATE OF DISCHARGE: Jan 28, 2021 at 0933 DISCHARGE DIAGNOSES: Major depressive disorder, recurrent, moderate Rule out bipolar depressed Substance use disorder (cannabis, heroin, alcohol) Generalized anxiety disorder Borderline personality disorder REASON FOR ADMISSION:Patient is a 36 -year-old Single, , Unemployed, Undomiciled female, who self-presented to the ED with suicidal thoughts to overdose on heroin. Patient used heroin x 2 days ago. Also reporting depression anxiety and poor sleep. She reports visions that she is seeing the end of the world, people getting hurt or dying, states that she had visions of Covid when she was younger. She reports a long history of seeing these visions that her scaring her and feels that she is seeing things that will happen in the future. Admits to using heroin, zach, cannabis and drinking 2 L of vodka a day. Blood alcohol was 0.12. VITAL SIGNS: See below. CONSULTANTS INVOLVED: See Medical H + P by Hospitalist TREATMENT AND PROGRESS ON THE UNIT: Patient was admitted to the [facility] on a 9.39 legal status was afforded the following treatment modalities: 1) Individual Therapy 2) Group Therapy 3) Medication Management 4) Milieu Therapy 5) Safe Environment HOSPITAL COURSE: Patient was admitted to [facility] on a 9.39 legal status. Patient had reported that she was quite suicidal, having intrusive thoughts to overdose on heroin. Patient complained of auditory hallucinations and was started on Invega. She was also started on Prozac 20 mg, buspirone 10 mg twice daily, Seroquel 50 mg at night. Patient had reported that she continued to have mood fluctuations and requested to have Seroquel 50 mg twice daily. Seroquel at bedtime was increased to 150 mg daily, Invega was discontinued. Initially patient was very drowsy and withdrawn isolative to her room. Within the last few days she reports a decrease in depression and anxiety. Her mood and affect brightened. Pt found medications beneficial and tolerated them well. Mood, anxiety, and intrusive thoughts improved with treatment. Pt attended groups daily during stay. Pts symptoms improved with treatment. On day of discharge pt. denied depression, anxiety, insomnia, SI/HI, hallucinations, delusions. Pt was discharged home with follow-up with [facility]. DISCHARGE ASSESSMENT: In today's interview, patient is alert and oriented, pt.s dress is appropriate. Hygiene and grooming is well-kempt. Smiles on approach and is pleasant and engaged in the interview. Denies depression and anxiety. Denies suicidal and homicidal ideation, planning or intent. Denies and is not observed with barron, psychotic symptoms of delusions, bizarre thinking, obsessions, paranoia, ruminations illogical thoughts, flight of ideas or having poor insight and judgement. Reinforced with patient need to abstain from alcohol and drugs. At discharge patient has normal mentation, declines further hospitalization on a voluntary status and meets criteria for discharge today. Discussed indications of medications, potential benefits and risks, alternatives (including no treatment) and questions were encouraged and answered. Patient encouraged to return to hospital if symptoms worsen or change and encouraged to call unit if he/she/they needs to speak to provider for questions regarding medications or care. Patient is future oriented. 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 She is reestablished with the caseworker. Patient's mood and affect have greatly improved. MENTAL STATUS EXAMINATION ON DISCHARGE: Patient is a 36 -year-old Single, , Unemployed, Undomiciled female, who self-presented to the ED with suicidal thoughts to overdose on heroin. Speech: Is fluid, conversant, normal rate, tone and volume Language skills are intact Thought processes including: linear and goal oriented Thought content: denies depression and anxiety. Denies suicidal/homicidal ideation, planning or intent. Abstract reasoning, and computation: fair Description of associations: denies, none observed Description of abnormal or psychotic thoughts: denies, none observed. Judgment: fair Insight: fair Orientation: alert and oriented to person, place, time and situation Recent and remote memory: intact Attention span and concentration: good Language: expansive Fund of knowledge: average Mood: Euthymic Mood Affect: reactive Suicide Risk Assessment: 1) Does the patient wish to be ? No 2) Since your admission, have you had any actual thought of killing yourself? No 3) Since your admission, have you been thinking about how you might do this? No 4) Since your admission, have you had these thoughts and had some intention of acting on them? No 5) Since your admission, have you started to work out or worked out the det ails of how to kill yourself? No 5A) Do you intent to carry out this plan? No and NA 6) Have you ever done anything, started anything, or prepared to do anything with any intent to ? No 6A) How long since your admission did you do any of these? NA MEDICATIONS ON DISCHARGE: See Medication Reconciliation PLAN/FOLLOWUP ARRANGEMENTS: Follow Up Care Education Label * Chemical Dependency Appt1 * Additional information [facility] in hours Monday - Monday 8-[address] [place] [address] [facility] hours Monday -Monday [phone] [place] [address] Follow Up Care Education Label * Medical * Medical Follow Up [facility] * Established With This Provider Yes * Therapist ERIN GRIFFITH * Date Feb 03, 2021 * Time 12:00 * Address of Clinic or Practice [address] [place] [id number] * Follow Up Care Education Label * Mental Health Appt 1 * Mental Health [facility] * Established With This Provider Yes * Therapist RODRÍGUEZ * Date Feb 01, 2021 * Time 08:00 * Address of Clinic or Practice [address] [facility] * Follow Up Care Education Label * Mental Health Appt 2 * Mental Health [facility] * Established With This Provider Yes * Therapist DR. COX * Date Feb 25, 2021 * Time 11:00 * Address of Clinic or Practice [address] [facility] * The amount of time spent in the coordination of care for this patient was approximately 25 minutes. ETOH/Disorder Med Rx ETOH/DRUG DISORDER RX: Offrd @ d/c & pt refused Vital Signs/I&Os Vital Signs Date Time Temp Pulse Resp B/P (MAP) Pulse Ox O2 Delivery O2 Flow Rate FiO2 01/28/21 06:52 98.6 85 16 104/68 (80) 99 Room Air Medications Scheduled Buspirone HCl (Buspirone HCl) 10 Mg Tablet, 10 MG PO BID for Anxiety, #14 Fluoxetine Hcl (Fluoxetine HCl) 20 Mg Capsule, 20 MG PO DAILY for Depression, #7 Nicotine (Nicotine Patch) 21 Mg Patch.td24, 1 PATCH TD DAILY for Nicotine Withdrawal, #7 Quetiapine Fumarate (Quetiapine Fumarate) 50 Mg Tablet, 50 MG PO TID for Mood, #21 Take at AM, Noon and 6:00 PM Quetiapine Fumarate (Quetiapine Fumarate) 50 Mg Tablet, 150 MG PO QHS for Insomnia, #21 Scheduled PRN Mirtazapine (Remeron) 15 Mg Tablet, 15 MG PO QHS PRN for insomnia, #7 Allergies Coded Allergies: trazodone (Verified Adverse Reaction, Mild, Rash, 11/28/19) ROLANDO SOUZA [employer] WORK[employer] Jan 28, 2021 09:45
== END 2021-01-28 10:21 | disposition home or self-care (01) | DRG 751 ==
LOC: M ED 14:24 → M ED INP 22:50 → M PSY 01-21 00:12
PROVIDERS: ADMIT Psychiatry & Neurology Psychiatry; ATTEND Psychiatry & Neurology Psychiatry
DX: F33.1 Major depressive disorder, recurrent, moderate (principal); F41.1 Generalized anxiety disorder; F12.90 Cannabis use, unspecified, uncomplicated; F10.10 Alcohol abuse, uncomplicated; F14.90 Cocaine use, unspecified, uncomplicated; F60.3 Borderline personality disorder; Z79.899 Other long term (current) drug therapy; Z88.8 Allergy status to other drugs, medicaments and biological substances

== ENCOUNTER 2021-02-08 17:50 | Inpatient (IN) | payer MEDICAID ==
[~2021-02-08] VITALS: Ht 162.6 cm; Wt 84.1 kg
[~2021-02-08 17:50] MED LIST changes: +BUSP10TA PO; +FLUO20CA22 PO; +MIRT-62 PO; +NICO21PAT TD; +QUET50TA4 PO
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
[2021-02-09 00:44] LABS: HEMATOCRIT 41.4 % (36.0-47.0); HEMOGLOBIN 13.6 g/dl (12.0-15.5); MEAN CORPUSCULAR HEMOGLOBIN 31.4 pg (27.0-33.0); MEAN CORPUSCULAR HGB CONC 32.9 g/dl (32.0-36.5); MEAN CORPUSCULAR VOLUME 95.6 fl (80.0-96.0); PLATELET COUNT, AUTOMATED 292 10^3/uL (150-450); RED BLOOD COUNT 4.33 10^6/uL (4.00-5.40); WHITE BLOOD COUNT 9.4 10^3/uL (4.0-10.0)
[2021-02-09 01:16] LABS: HCG, SERUM QUALITATIVE NEGATIVE (NEGATIVE)
[2021-02-09 01:23] LABS: AMPHETAMINES LEVEL URINE NEGATIVE (NEGATIVE); BARBITURATES URINE NEGATIVE (NEGATIVE); BENZODIAZEPINES URINE NEGATIVE (NEGATIVE); CANNABINOIDS URINE POSITIVE (NEGATIVE); COCAINE METABOLITE URINE NEGATIVE (NEGATIVE); METHADONE URINE NEGATIVE (NEGATIVE); OPIATES URINE NEGATIVE (NEGATIVE); PHENCYCLIDINE URINE NEGATIVE (NEGATIVE)
[2021-02-09 01:24] LABS: ACETAMINOPHEN LEVEL < 2.0 UG/ML (10.0-30.0); ALBUMIN 3.7 GM/DL (3.2-5.2); ALT/SGPT 75 U/L (12-78); BILIRUBIN,DIRECT < 0.1 MG/DL (0.0-0.2); BILIRUBIN,TOTAL 0.2 MG/DL (0.2-1.0); BLOOD UREA NITROGEN 13 MG/DL (7-18); CALCIUM LEVEL 9.3 MG/DL (8.5-10.1); CARBON DIOXIDE LEVEL 24 MEQ/L (21-32); CHLORIDE LEVEL 109 MEQ/L (98-107); CREATININE FOR GFR 0.71 MG/DL (0.55-1.30); ETHYL ALCOHOL (ETHANOL) 0.003 % (0.000-0.010); GLOMERULAR FILTRATION RATE > 60.0 (>60); GLUCOSE, FASTING 99 MG/DL (70-100); POTASSIUM SERUM 4.6 MEQ/L (3.5-5.1); SALICYLATE LEVEL 2.6 MG/DL (5.0-30.0); SODIUM LEVEL 140 MEQ/L (136-145); TOTAL PROTEIN 7.4 GM/DL (6.4-8.2)
[2021-02-09 01:42] LABS: RSV AMPLIFICATION NEGATIVE (NEGATIVE)
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
[2021-02-09] MEDS ORDERED: HOME MED LIST COMPLETE! XX SCH (11:10)
[2021-02-09] MEDS ORDERED: QUET100T2 PO (11:10)
[2021-02-09] MEDS ORDERED: busPIRone 10 MG TAB PO ONE (11:20)
[2021-02-09] MEDS ORDERED: FLUoxetine 20 MG CAP PO ONE (11:20)
[2021-02-09] MEDS ORDERED: QUEtiapine FUMARATE 50MG TAB PO ONE (11:20)
[2021-02-09] MEDS ORDERED: NICOTINE 21MG/24HR 1 EA TRANSDERMAL TD ONE (11:20)
[2021-02-09] MEDS ORDERED: ACETAMINOPHEN TAB 650MG DOSE (2X325MG) PO PRN (16:05)
[2021-02-09] MEDS ORDERED: MOM 30ML SUSPENSION UDC PO PRN (16:05)
[2021-02-09] MEDS ORDERED: traZODone 50 MG TAB PO PRN (16:05)
[2021-02-09 18:37] VITALS: BP 117/63
[2021-02-09] MEDS: QUEtiapine FUMARATE 50MG TAB PO SCH (20:39)
[2021-02-09] MEDS: busPIRone 10 MG TAB PO SCH (20:39)
[2021-02-09] MEDS: MIRTAZAPINE 15 MG TAB PO PRN (20:40)
[2021-02-09] MEDS ORDERED: QUEtiapine FUMARATE 50MG TAB PO SCH (21:00)
[2021-02-10 06:00] VITALS: BP 107/63
[2021-02-10] MEDS: QUEtiapine FUMARATE 50MG TAB PO SCH ×2 (09:57→12:40)
[2021-02-10] MEDS: busPIRone 10 MG TAB PO SCH ×2 (09:57→21:30)
[2021-02-10] MEDS: FLUoxetine 20 MG CAP PO SCH (09:57)
[2021-02-10] MEDS: NICOTINE 21MG/24HR 1 EA TRANSDERMAL TD SCH (09:58)
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
--- NOTE | 2021-02-10 17:26 | HPEPDOC ---
General Date of Admission Feb 09, 2021 at 16:02 Date of Service: Feb 10, 2021 Chief Complaint The patient is a 36-year-old female admitted with a reason for visit of Unspecified Depressive Disorder. History of Present Illness 36 year old female admitted to [facility] for depression with suicidal thoughts and a plan to OD on heroin. She reported to using zach, heroin and marijuana but her Utox is positive only to Marijuana. She is being examined here today for Medical history and physical. Patient reports that she quit smoking 3 weeks ago and also she quit drinking 3 weeks ago. She used to be heavy daily vodka drinker but in the 3 weeks she has had only 2 days when she drank. Today she is complaining of frequency of urination, and a bad odor in urine. She thinks she may be having a urinary tract infection. Home Medications Scheduled Buspirone HCl (Buspirone HCl) 10 Mg Tablet, 10 MG PO BID for Anxiety Fluoxetine Hcl (Fluoxetine HCl) 20 Mg Capsule, 20 MG PO DAILY for Depression Nicotine (Nicotine Patch) 21 Mg Patch.td24, 1 PATCH TD DAILY for Nicotine Withdrawal Quetiapine Fumarate (Quetiapine Fumarate) 50 Mg Tablet, 50 MG PO TID for Mood Take at AM, Noon and 6:00 PM Quetiapine Fumarate (Quetiapine Fumarate) 100 Mg Tablet, 150 MG PO QHS, (Reported) Scheduled PRN Mirtazapine (Remeron) 15 Mg Tablet, 15 MG PO QHS PRN for insomnia Allergies Coded Allergies: trazodone (Verified Allergy, Mild, Rash, 02/09/21) Past Medical History Medical History Major depressive disorder Substance use disorder (cannabis, heroin, alcohol) Generalized anxiety disorder Borderline personality disorder Family History Significant Family History: No pertinent family hx discussed with patient. Social History * Smoker: current smoker Alcohol: heavy Drugs: heroin, marijuana A-FIB/CHADSVASC A-FIB History Current/History of A-Fib/PAF?: No Review of Systems Constitutional: Denies: Chills, Fever, Night Sweats Eyes: Denies: Pain, Vision change ENT: Denies: Head Aches, Ear Pain, Dysphagia Skin: Denies: Rash, Lesions, Breakdown Pulmonary: Denies: Dyspnea, Cough Cardiovascular: Denies: Chest Pain, Palpitations, Orthopnea, Paroxysmal Noc. Dyspnea, Lt Headedness Gastrointestinal: Denies: Nausea, Vomiting, Abdominal Pain, Diarrhea Genitourinary: Reports: Dysuria, Frequency Hematologic: Denies: Bruising, Bleeding Excessively Musculoskeletal: Denies: Neck Pain, Back Pain, Joint Pain, Muscle Pain, Spasms Physical Examination General Exam: Positive: Alert, Cooperative, No Acute Distress Eye Exam: Positive: PERRLA, Conjunctiva & lids normal, EOMI; Negative: Sclera icteric ENT Exam: Positive: Atraumatic, Mucous membr. moist/pink, Pharynx Normal Neck Exam: Positive: Supple; Negative: JVD, thyromegaly Chest Exam: Positive: Clear to auscultation, Normal air movement Heart Exam: Positive: Rate Normal, Regular Rhythm, Normal S1, Normal S2; Negative: Murmurs, Rubs Abdomen Exam: Positive: Normal bowel sounds, Soft; Negative: Tenderness, Hepatospenomegaly Extremity Exam: Positive: Normal pulses; Negative: Clubbing, Cyanosis, Edema Skin Exam: Positive: Nl turgor and temperature; Negative: Breakdown, Lesion Vital Signs Vital Signs Date Time Temp Pulse Resp B/P (MAP) Pulse Ox O2 Delivery O2 Flow Rate FiO2 02/10/21 07:37 Room Air 02/10/21 06:00 98.2 67 18 107/63 (78) 96 Assessment/Plan 36 year old female admitted to [facility] for depression with suicidal thoughts and a plan to OD on heroin. She reported to using zach, heroin and marijuana but her Utox is positive only to Marijuana. She is being examined here today for Medical history and physical. Frequency of urination We will check UA Depression/anxiety psych/borderline personality disorder As per psychiatry Polysubstance use disorder As per psychiatry. Plan / VTE VTE Prophylaxis Ordered?: No (Freely ambulatory) Corin Palacios MD Feb 10, 2021 15:42
[2021-02-10 17:52] VITALS: BP 120/66
[2021-02-10] MEDS: QUEtiapine FUMARATE 200 MG TAB PO SCH (21:30)
[2021-02-10] MEDS: MIRTAZAPINE 15 MG TAB PO PRN (21:30)
[2021-02-11 06:24] VITALS: BP 123/56
[2021-02-11] MEDS: FLUoxetine 20 MG CAP PO SCH (10:02)
[2021-02-11] MEDS: NICOTINE 21MG/24HR 1 EA TRANSDERMAL TD SCH (10:03)
[2021-02-11] MEDS: QUEtiapine FUMARATE 50MG TAB PO SCH ×2 (10:03→16:12)
[2021-02-11] MEDS: busPIRone 10 MG TAB PO SCH ×2 (10:03→20:34)
--- NOTE | 2021-02-11 10:42 | MHIPNPDOC ---
[facility] Progress Note Progress Note DATE OF SERVICE: 02/11/21 HISTORY: Patient is a 36 -year-old , female, who is endorsing increased suicidal ideation and depression and anxiety. She states in the interview, "I cannot do it by myself when I am out there it is different, I am hearing and seeing things when I am alone Anytime I am alone, I don't feel good, I am uncomfortable, I would rather not be in the world I use to be sociable, now i have social anxiety and I use to be able to sleep at my parents but now I can't sleep" Reports having difficulty with housing, states that her phone makes her look for things, feels that she is delusional thinking. States that her mother says that she has been reading excessively. States that the medications was helpful but she felt drowsy and tired. Taking Seroquel but did not want to drink. Says she was calmer and using Seroquel excessively and was doubling the medications, states that she did not go to appointment because she is too anxious to go to appointment. States that she has intrusive thinking and reports that her anxiety is worsening. "I think I need help, I am worried that I need to get the help, I usually need drugs and alcohol to get through the day but I am not using and I am having trouble. " Reports being consumed with historical events of the world ending and becomes tangential at the end of the interview, with slight flight of ideas. She is requesting housing, change in her medications and ho ping to have less intrusive thoughts. PER ED REPORT: Pt states that she self-presented to the ED due to SI with a plan to OD on heroin. Pt has a hx of multiple suicide attempts via OD, with the last attempt being earlier this month. Pt has a hx of self-harm via poking herself with needles, which she last did four days ago. Pt denies HI. Pt reports AH that tell her to get herself "back on track." She denies VH. She does not appear to be internally preoccupied. Pt does voice paranoid delusions, stating that she has not slept in several days because she is afraid that people will break in to her apartment & she also believes that people can read her mind. Pt also states that "I feel like something is going to go wrong" with the people in her life, such as they will lose their benefits or they will lose their doctor. Pt c/o depressed mood, anxiety, decreased energy levels, & poor sleep. Pt has a hx of MDD, RODNEY, borderline personality d/o, & substance abuse with two admissions. She does not currently have OP tx & states she missed her follow-up appointment after her last DC from [facility]. Pt has a hx of drinking 2 liters of vodka daily, but states she has only drank once since her DC from [facility] on 01/28/21 & she had two beers. Pt reports MJ, zach, & heroin use, however, her tox screen was only positive for cannabis. VITAL SIGNS: See below. NEW TEST RESULTS: None CURRENT MEDICATIONS: See below. MENTAL STATUS EXAMINATION: Patient is a 36 -year-old , female, who is endorsing increased suicidal ideation and depression and anxiety. Speech: Is clear, mildly fast, normal volume Language skills are fair. Thought processes including: Linear coherent. Thought content: Depressed anxious. Abstract reasoning, and computation: Fair. Description of associations: None. Description of abnormal or psychotic thoughts: Racing thoughts. Judgment: Fair. Insight: Fair. Orientation: Alert and oriented x4. Recent and remote memory: Good. Attention span and concentration: Good. Language: Portuguese expansive. Fund of knowledge: Average. Mood: "I am feeling depressed and anxious". Affect: Flat. DIAGNOSES: Major depressive disorder, recurrent, moderate Rule out bipolar depressed substance use disorder (cannabis, heroin, alcohol) generalized anxiety disorder borderline personality disorder ASSESSMENT: Patient is alert and oriented x4. c/o obsessive thoughts and not being able to sleep. States she is having trouble navigating the outside world due to incarceration. States she does not feel safe at parents house but feels safe here. Patient states "it would be better if I were not around anymore" because it is hard to get her life together. Patient complains of racing thoughts which prevent her from maintaining employment, going to her appointments, and finding housing. She states having racing thoughts since she was an adolescent. She states manic-like symptoms while using substances, it is difficult to ascertain whether the patient has a bipolar disorder as she reports a chronic and significant use of methamphetamine and alcohol. Patient was tangential in the interview she exhibited having racing thoughts. She continued to report depression and anxiety. Symptoms are significant that patient is not safe for discharge at this time. MANAGEMENT PLAN: Discussed mood stabilizer with patient, she is agreeable to Depakote. Will review lab results as patient has a chronic use of alcohol. Continue all medications and supportive therapies as ordered. Discharge when stable. TIME SPENT: 25 minutes. Vital Signs Vital Signs Date Time Temp Pulse Resp B/P (MAP) Pulse Ox O2 Delivery O2 Flow Rate FiO2 02/11/21 06:24 98.5 71 16 123/56 (78) 97 Room Air Current Medications Current Medications Medications (Trade) Dose Ordered Sig/Hernan Route PRN Reason Start Time Stop Time Status Last Admin Dose Admin Acetaminophen (Tylenol Tab) 650 mg Q6HP PRN PO HEADACHE or MILD DISCOMFORT 02/09/21 16:05 Al Hydrox/Mg Hydrox/Simethicone (Mylanta) 30 ml Q4HP PRN PO HEARTBURN/INDIGESTION 02/09/21 16:05 Buspirone HCl (Buspar) 10 mg BID PO 02/09/21 21:00 02/10/21 21:30 Fluoxetine HCl (PROzac) 20 mg DAILY PO 02/10/21 09:00 02/10/21 09:57 Home Med (Home Med List Complete!) ASDIRECTED XX 02/09/21 11:10 02/09/21 11:17 DC Magnesium Hydroxide (Milk Of Magnesia) 30 ml DAILYPRN PRN PO CONSTIPATION 02/09/21 16:05 Mirtazapine (Remeron) 15 mg QHS PRN PO Insomnia 02/09/21 16:05 02/10/21 21:30 Nicotine (Nicoderm Cq 21mg) 1 patch DAILY TD 02/10/21 09:00 02/10/21 09:58 Quetiapine Fumarate (SEROquel) 50 mg 0900,1200,1800 PO 02/09/21 18:00 02/10/21 16:36 DC 02/10/21 12:40 Quetiapine Fumarate (SEROquel) 50 mg BID@0900,1600 PO 02/11/21 09:00 Quetiapine Fumarate (SEROquel) 150 mg QHS PO 02/09/21 21:00 02/10/21 16:36 DC 02/09/21 20:39 Quetiapine Fumarate (SEROquel) 200 mg QHS PO 02/10/21 21:00 02/10/21 21:30 Trazodone HCl (Desyrel) 50 mg QHSP PRN PO INSOMNIA 02/09/21 16:05 UNV Allergies Coded Allergies: trazodone (Verified Allergy, Mild, Rash, 02/09/21) ROLANDO SOUZA NP Feb 11, 2021 10:42
[2021-02-11 18:19] VITALS: BP 108/55
[2021-02-11] MEDS: MIRTAZAPINE 15 MG TAB PO PRN (20:34)
[2021-02-11] MEDS: QUEtiapine FUMARATE 200 MG TAB PO SCH (20:34)
[2021-02-11] MEDS: MAALOX 30 ML SUSP *UDC PO PRN (20:34)
[2021-02-12 07:24] VITALS: BP 129/66
[2021-02-12] MEDS: QUEtiapine FUMARATE 50MG TAB PO SCH ×2 (09:34→15:13)
[2021-02-12] MEDS: busPIRone 10 MG TAB PO SCH (09:34)
[2021-02-12] MEDS: FLUoxetine 20 MG CAP PO SCH (09:34)
[2021-02-12] MEDS: NICOTINE 21MG/24HR 1 EA TRANSDERMAL TD SCH (09:35)
[2021-02-12] MEDS ORDERED: DIVALPROEX 125 MG TAB PO ONE (10:00)
--- NOTE | 2021-02-12 12:23 | MHIPNPDOC ---
[facility] Progress Note Progress Note DATE OF SERVICE: 02/12/21 HISTORY: Patient is a 36 -year-old , female, who is endorsing increased suicidal ideation and depression and anxiety. She states in the interview, "I cannot do it by myself when I am out there it is different, I am hearing and seeing things when I am alone Anytime I am alone, I don't feel good, I am uncomfortable, I would rather not be in the world I use to be sociable, now i have social anxiety and I use to be able to sleep at my parents but now I can't sleep" Reports having difficulty with housing, states that her phone makes her look for things, feels that she is delusional thinking. States that her mother says that she has been reading excessively. States that the medications was helpful but she felt drowsy and tired. Taking Seroquel but did not want to drink. Says she was calmer and using Seroquel excessively and was doubling the medications, states that she did not go to appointment because she is too anxious to go to appointment. States that she has intrusive thinking and reports that her anxiety is worsening. "I think I need help, I am worried that I need to get the help, I usually need drugs and alcohol to get through the day but I am not using and I am having trouble. " Reports being consumed with historical events of the world ending and becomes tangential at the end of the interview, with slight flight of ideas. She is requesting housing, change in her medications and ho ping to have less intrusive thoughts. PER ED REPORT: Pt states that she self-presented to the ED due to SI with a plan to OD on heroin. Pt has a hx of multiple suicide attempts via OD, with the last attempt being earlier this month. Pt has a hx of self-harm via poking herself with needles, which she last did four days ago. Pt denies HI. Pt reports AH that tell her to get herself "back on track." She denies VH. She does not appear to be internally preoccupied. Pt does voice paranoid delusions, stating that she has not slept in several days because she is afraid that people will break in to her apartment & she also believes that people can read her mind. Pt also states that "I feel like something is going to go wrong" with the people in her life, such as they will lose their benefits or they will lose their doctor. Pt c/o depressed mood, anxiety, decreased energy levels, & poor sleep. Pt has a hx of MDD, RODNEY, borderline personality d/o, & substance abuse with two admissions. She does not currently have OP tx & states she missed her follow-up appointment after her last DC from [facility]. Pt has a hx of drinking 2 liters of vodka daily, but states she has only drank once since her DC from [facility] on 01/28/21 & she had two beers. Pt reports MJ, zach, & heroin use, however, her tox screen was only positive for cannabis. VITAL SIGNS: See below. NEW TEST RESULTS: None CURRENT MEDICATIONS: See below. MENTAL STATUS EXAMINATION: Patient is a 36 -year-old , female, who is endorsing increased suicidal ideation and depression and anxiety. Speech: Is clear, mildly fast, normal volume, hyperverbal and tangential Language skills are fair. Thought processes including: Linear coherent. Thought content: Depressed anxious. Abstract reasoning, and computation: Fair. Description of associations: None. Description of abnormal or psychotic thoughts: Racing thoughts. Judgment: Fair. Insight: Fair. Orientation: Alert and oriented x4. Recent and remote memory: Good. Attention span and concentration: Good. Language: Dominican expansive. Fund of knowledge: Average. Mood: "I am feeling a little better less depressed but still anxious". Affect: Flat. DIAGNOSES: Major depressive disorder, recurrent, moderate Rule out bipolar depressed substance use disorder (cannabis, heroin, alcohol) generalized anxiety disorder borderline personality disorder ASSESSMENT: Patient is alert and oriented x4. Continues to ruminates about the inability to manage her life outside of being incarcerated or hospitalized because of her severe anxiety. Is hopeful for Transitional Living Services and case management. Continues to report anxiety but increasingly severe due to her room mate having a 1:1 sitter. She reports that she is afraid of her roommate's behaviors and is requesting a new room. She appears to be motivated to find outpatient services to help her with Substance use and wants to live a life of sobriety again. She reports that she was recently [facility] and she did well for 2-3 days but then had anxiety, social anxiety, and nervousness with being outside of her parent's home. Patient was quite hype rverbal in the interview. was repeating herself often. Patient was tangential in the interview she exhibited having racing thoughts. MANAGEMENT PLAN: Discussed mood stabilizer with patient, she is agreeable to Depakote. Discharge when stable. TIME SPENT: 25 minutes. Vital Signs Vital Signs Date Time Temp Pulse Resp B/P (MAP) Pulse Ox O2 Delivery O2 Flow Rate FiO2 02/12/21 07:24 97.7 71 18 129/66 (87) 99 Room Air Current Medications Current Medications Medications (Trade) Dose Ordered Sig/Hernan Route PRN Reason Start Time Stop Time Status Last Admin Dose Admin Acetaminophen (Tylenol Tab) 650 mg Q6HP PRN PO HEADACHE or MILD DISCOMFORT 02/09/21 16:05 Al Hydrox/Mg Hydrox/Simethicone (Mylanta) 30 ml Q4HP PRN PO HEARTBURN/INDIGESTION 02/09/21 16:05 02/11/21 20:34 Buspirone HCl (Buspar) 10 mg BID PO 02/09/21 21:00 02/12/21 11:48 DC 02/12/21 09:34 Buspirone HCl (Buspar) 15 mg BID PO 02/12/21 21:00 Divalproex Sodium (Depakote) 250 mg BID PO 02/13/21 09:00 Fluoxetine HCl (PROzac) 20 mg DAILY PO 02/10/21 09:00 02/12/21 09:34 Home Med (Home Med List Complete!) ASDIRECTED XX 02/09/21 11:10 02/09/21 11:17 DC Magnesium Hydroxide (Milk Of Magnesia) 30 ml DAILYPRN PRN PO CONSTIPATION 02/09/21 16:05 Mirtazapine (Remeron) 15 mg QHS PRN PO Insomnia 02/09/21 16:05 02/11/21 20:34 Nicotine (Nicoderm Cq 21mg) 1 patch DAILY TD 02/10/21 09:00 02/12/21 09:35 Quetiapine Fumarate (SEROquel) 50 mg 0900,1200,1800 PO 02/09/21 18:00 02/10/21 16:36 DC 02/10/21 12:40 Quetiapine Fumarate (SEROquel) 50 mg BID@0900,1600 PO 02/11/21 09:00 02/12/21 09:34 Quetiapine Fumarate (SEROquel) 150 mg QHS PO 02/09/21 21:00 02/10/21 16:36 DC 02/09/21 20:39 Quetiapine Fumarate (SEROquel) 200 mg QHS PO 02/10/21 21:00 02/11/21 20:34 Trazodone HCl (Desyrel) 50 mg QHSP PRN PO INSOMNIA 02/09/21 16:05 UNV Allergies Coded Allergies: trazodone (Verified Allergy, Mild, Rash, 02/09/21) ROLANDO SOUZA NP Feb 12, 2021 12:23
[2021-02-12 18:50] VITALS: BP 105/73
[2021-02-12] MEDS: busPIRone 5 MG TAB PO SCH (20:25)
[2021-02-12] MEDS: QUEtiapine FUMARATE 200 MG TAB PO SCH (20:25)
[2021-02-12] MEDS: MIRTAZAPINE 15 MG TAB PO PRN (20:26)
[2021-02-12] MEDS: MAALOX 30 ML SUSP *UDC PO PRN (20:44)
[2021-02-13 06:24] VITALS: BP 111/62
[2021-02-13 08:59] LABS: CHOLESTEROL RISK RATIO 3.174 (<5)
[2021-02-13] MEDS: QUEtiapine FUMARATE 50MG TAB PO SCH ×2 (09:14→15:23)
[2021-02-13] MEDS: busPIRone 5 MG TAB PO SCH ×2 (09:14→20:06)
[2021-02-13] MEDS: DIVALPROEX 250 MG TAB PO SCH ×2 (09:14→20:06)
[2021-02-13] MEDS: NICOTINE 21MG/24HR 1 EA TRANSDERMAL TD SCH (09:14)
[2021-02-13] MEDS: FLUoxetine 20 MG CAP PO SCH (09:14)
--- NOTE | 2021-02-13 14:46 | MHIPN ---
[facility] PROGRESS NOTE DATE: 02/13/2021 I did not see the patient today, because she refused to see me.
[2021-02-13 17:50] VITALS: BP 132/89
[2021-02-13] MEDS: MIRTAZAPINE 15 MG TAB PO PRN (20:06)
[2021-02-13] MEDS: QUEtiapine FUMARATE 200 MG TAB PO SCH (20:06)
[2021-02-14 07:26] VITALS: BP 103/56
[2021-02-14] MEDS: busPIRone 5 MG TAB PO SCH ×2 (09:49→21:10)
[2021-02-14] MEDS: FLUoxetine 20 MG CAP PO SCH (09:49)
[2021-02-14] MEDS: QUEtiapine FUMARATE 50MG TAB PO SCH ×2 (09:49→16:44)
[2021-02-14] MEDS: NICOTINE 21MG/24HR 1 EA TRANSDERMAL TD SCH (09:50)
[2021-02-14] MEDS: DIVALPROEX 250 MG TAB PO SCH ×2 (09:51→21:10)
[2021-02-14 19:08] VITALS: BP 144/60
[2021-02-14] MEDS: MIRTAZAPINE 15 MG TAB PO PRN (21:10)
[2021-02-14] MEDS: MAALOX 30 ML SUSP *UDC PO PRN (21:11)
[2021-02-14] MEDS: QUEtiapine FUMARATE 200 MG TAB PO SCH (21:11)
[2021-02-15 06:49] VITALS: BP 103/62
[2021-02-15] MEDS: FLUoxetine 20 MG CAP PO SCH (09:35)
[2021-02-15] MEDS: QUEtiapine FUMARATE 50MG TAB PO SCH ×2 (09:35→15:15)
[2021-02-15] MEDS: DIVALPROEX 250 MG TAB PO SCH ×2 (09:35→20:22)
[2021-02-15] MEDS: NICOTINE 21MG/24HR 1 EA TRANSDERMAL TD SCH (09:35)
[2021-02-15] MEDS: busPIRone 5 MG TAB PO SCH ×2 (09:36→20:22)
--- NOTE | 2021-02-15 12:51 | MHIPNPDOC ---
[facility] Progress Note Progress Note DATE OF SERVICE: 02/15/21 HISTORY: Patient is a 36 -year-old Single, Unemployed, Undomiciled , female, who is endorsing increased suicidal ideation and depression and anxiety. Reporting severe social anxiety and inability to sleep. Interval: Reports that her weekend was good but continues to have depression, states "I know that this is situational but I am also restless because of my anxiety." VITAL SIGNS: See below. NEW TEST RESULTS: None CURRENT MEDICATIONS: See below. MENTAL STATUS EXAMINATION: Patient is a 36 -year-old Single, Unemployed, Undomiciled , female, who is endorsing increased suicidal ideation and depression and anxiety. Speech: Is fluid, conversant, normal rate, tone and volume Language skills are intact Thought processes including: linear and goal oriented Thought content: denies depression and anxiety. Denies suicidal/homicidal ideation, planning or intent. Abstract reasoning, and computation: fair Description of associations: denies, none observed Description of abnormal or psychotic thoughts: denies, none observed. Judgment: fair Insight: fair Orientation: alert and oriented to person, place, time and situation Recent and remote memory: intact Attention span and concentration: good Language: expansive Fund of knowledge: average DIAGNOSIS: Major depressive disorder, recurrent, moderate Rule out bipolar depressed substance use disorder (cannabis, heroin, alcohol) generalized anxiety disorder borderline personality disorder ASSESSMENT: Patient reports that she was having a good weekend, but continues to have depression. She reports improvement in her depression and anxiety overall but fears that if she were discharged she would return to the hospital because she does not feel that she has the ability to manage herself. Reviewed with patient that she can use coping skills that she has learned in groups. States that she does not want to stay until [facility] has a bed fully understanding that this may take weeks for a determination. She states that she cannot contract for safety if discharged today. MANAGEMENT PLAN: Discussed mood stabilizer with patient, she is agreeable to Depakote. Discharge when stable. TIME SPENT: 25 minutes Vital Signs Vital Signs Date Time Temp Pulse Resp B/P (MAP) Pulse Ox O2 Delivery O2 Flow Rate FiO2 02/15/21 06:49 99.0 61 16 103/62 (76) 97 Room Air Current Medications Current Medications Medications (Trade) Dose Ordered Sig/Hernan Route PRN Reason Start Time Stop Time Status Last Admin Dose Admin Acetaminophen (Tylenol Tab) 650 mg Q6HP PRN PO HEADACHE or MILD DISCOMFORT 02/09/21 16:05 Al Hydrox/Mg Hydrox/Simethicone (Mylanta) 30 ml Q4HP PRN PO HEARTBURN/INDIGESTION 02/09/21 16:05 02/14/21 21:11 Buspirone HCl (Buspar) 10 mg BID PO 02/09/21 21:00 02/12/21 11:48 DC 02/12/21 09:34 Buspirone HCl (Buspar) 15 mg BID PO 02/12/21 21:00 02/15/21 09:36 Divalproex Sodium (Depakote) 250 mg BID PO 02/13/21 09:00 02/15/21 09:35 Fluoxetine HCl (PROzac) 20 mg DAILY PO 02/10/21 09:00 02/15/21 09:35 Gabapentin (Neurontin) 100 mg BID PO 02/15/21 09:00 Home Med (Home Med List Complete!) ASDIRECTED XX 02/09/21 11:10 02/09/21 11:17 DC Magnesium Hydroxide (Milk Of Magnesia) 30 ml DAILYPRN PRN PO CONSTIPATION 02/09/21 16:05 Mirtazapine (Remeron) 15 mg QHS PRN PO Insomnia 02/09/21 16:05 02/14/21 21:10 Nicotine (Nicoderm Cq 21mg) 1 patch DAILY TD 02/10/21 09:00 02/15/21 09:35 Quetiapine Fumarate (SEROquel) 50 mg 0900,1200,1800 PO 02/09/21 18:00 02/10/21 16:36 DC 02/10/21 12:40 Quetiapine Fumarate (SEROquel) 50 mg BID@0900,1600 PO 02/11/21 09:00 02/15/21 09:35 Quetiapine Fumarate (SEROquel) 150 mg QHS PO 02/09/21 21:00 02/10/21 16:36 DC 02/09/21 20:39 Quetiapine Fumarate (SEROquel) 200 mg QHS PO 02/10/21 21:00 02/14/21 21:11 Trazodone HCl (Desyrel) 50 mg QHSP PRN PO INSOMNIA 11/30/21 16:05 UNV Allergies Coded Allergies: trazodone (Verified Allergy, Mild, Rash, 02/09/21) ROLANDO SOUZA NP Feb 15, 2021 12:42
[2021-02-15] MEDS: GABAPENTIN 100 MG CAP PO SCH ×2 (14:07→20:22)
[2021-02-15 16:12] VITALS: BP 105/56
[2021-02-15] MEDS: QUEtiapine FUMARATE 200 MG TAB PO SCH (20:22)
[2021-02-15] MEDS: MIRTAZAPINE 15 MG TAB PO PRN (20:22)
[2021-02-15] MEDS: MAALOX 30 ML SUSP *UDC PO PRN (21:16)
[2021-02-16 07:18] VITALS: BP 103/57
[2021-02-16] MEDS: FLUoxetine 20 MG CAP PO SCH (08:54)
[2021-02-16] MEDS: DIVALPROEX 250 MG TAB PO SCH ×2 (08:54→20:32)
[2021-02-16] MEDS: GABAPENTIN 100 MG CAP PO SCH ×2 (08:54→20:32)
[2021-02-16] MEDS: QUEtiapine FUMARATE 50MG TAB PO SCH ×2 (08:54→15:41)
[2021-02-16] MEDS: NICOTINE 21MG/24HR 1 EA TRANSDERMAL TD SCH (08:54)
[2021-02-16] MEDS: busPIRone 5 MG TAB PO SCH ×2 (08:54→20:32)
[2021-02-16] MEDS ORDERED: BENZTROPINE 1 MG TAB PO ONE (09:50)
--- NOTE | 2021-02-16 13:19 | MHIPNPDOC ---
[facility] Progress Note Progress Note DATE OF SERVICE: 02/16/21 HISTORY:Patient is a 36 -year-old Single, Unemployed, Undomiciled , female, who is endorsing increased suicidal ideation and depression and anxiety. Reporting severe social anxiety and inability to sleep. Interval: Reports that she wants to leave tomorrow "I have to just fake it until I make it." VITAL SIGNS: See below. NEW TEST RESULTS: None CURRENT MEDICATIONS: See below. MENTAL STATUS EXAMINATION: Patient is a 36 -year-old Single, Unemployed, Undomiciled , female, who is endorsing increased suicidal ideation and depression and anxiety. Speech: Is fluid, conversant, normal rate, tone and volume Language skills are intact Thought processes including: linear and goal oriented Thought content: denies depression and anxiety. Denies suicidal/homicidal ideation, planning or intent. Abstract reasoning, and computation: fair Description of associations: denies, none observed Description of abnormal or psychotic thoughts: denies, none observed. Judgment: fair Insight: fair Orientation: alert and oriented to person, place, time and situation Recent and remote memory: intact Attention span and concentration: good Language: expansive Fund of knowledge: average Language: expansive Fund of knowledge: average Mood: Euthymic Mood Affect: reactive DIAGNOSIS: Major depressive disorder, recurrent, moderate Rule out bipolar depressed substance use disorder (cannabis, heroin, alcohol) generalized anxiety disorder borderline personality disorder ASSESSMENT: Patient is reporting that she has minimal depression and anxiety today states "I want to be discharged tomorrow, I will have to fake it until I make it." She is motivated to go to [facility] and received housing. She states that [facility] told her that she would have to go to any housing that they sent her to she has to physically be there and report why she cannot stay. She states that she can manage after today is having future orientation states that her visions have decreased, she feels less anxious, and feels that her medications are effective at this point. She denies suicidal or homicidal thoughts, denies any auditory hallucinations, paranoia, delusional thinking. MANAGEMENT PLAN: Continue medications and therapies as ordered Discharge tomorrow TIME SPENT: 25 minutes Vital Signs Vital Signs Date Time Temp Pulse Resp B/P (MAP) Pulse Ox O2 Delivery O2 Flow Rate FiO2 02/16/21 07:18 97.5 76 18 103/57 (72) 98 Room Air Laboratory Data [facility] Laboratory Tests 2 02/15/21 17:00: Coronavirus (COVID-19)(PCR) NEGATIVE Current Medications Current Medications Medications (Trade) Dose Ordered Sig/Hernan Route PRN Reason Start Time Stop Time Status Last Admin Dose Admin Acetaminophen (Tylenol Tab) 650 mg Q6HP PRN PO HEADACHE or MILD DISCOMFORT 02/09/21 16:05 Al Hydrox/Mg Hydrox/Simethicone (Mylanta) 30 ml Q4HP PRN PO HEARTBURN/INDIGESTION 02/09/21 16:05 02/15/21 21:16 Buspirone HCl (Buspar) 10 mg BID PO 02/09/21 21:00 02/12/21 11:48 DC 02/12/21 09:34 Buspirone HCl (Buspar) 15 mg BID PO 02/12/21 21:00 02/16/21 08:54 Divalproex Sodium (Depakote) 250 mg BID PO 02/13/21 09:00 02/16/21 08:54 Fluoxetine HCl (PROzac) 20 mg DAILY PO 02/10/21 09:00 02/16/21 08:54 Gabapentin (Neurontin) 100 mg BID PO 02/15/21 09:00 02/16/21 08:54 Home Med (Home Med List Complete!) ASDIRECTED XX 02/09/21 11:10 02/09/21 11:17 DC Magnesium Hydroxide (Milk Of Magnesia) 30 ml DAILYPRN PRN PO CONSTIPATION 02/09/21 16:05 Mirtazapine (Remeron) 15 mg QHS PRN PO Insomnia 02/09/21 16:05 02/15/21 20:22 Nicotine (Nicoderm Cq 21mg) 1 patch DAILY TD 02/10/21 09:00 02/16/21 08:54 Quetiapine Fumarate (SEROquel) 50 mg 0900,1200,1800 PO 02/09/21 18:00 02/10/21 16:36 DC 02/10/21 12:40 Quetiapine Fumarate (SEROquel) 50 mg BID@0900,1600 PO 02/11/21 09:00 02/16/21 08:54 Quetiapine Fumarate (SEROquel) 150 mg QHS PO 02/09/21 21:00 02/10/21 16:36 DC 02/09/21 20:39 Quetiapine Fumarate (SEROquel) 200 mg QHS PO 02/10/21 21:00 02/15/21 20:22 Trazodone HCl (Desyrel) 50 mg QHSP PRN PO INSOMNIA 02/09/21 16:05 UNV Allergies Coded Allergies: trazodone (Verified Allergy, Mild, Rash, 02/09/21) ROLANDO SOUZA NP Feb 16, 2021 13:11
[2021-02-16 16:24] VITALS: BP 127/64
[2021-02-16] MEDS: MAALOX 30 ML SUSP *UDC PO PRN (20:32)
[2021-02-16] MEDS: MIRTAZAPINE 15 MG TAB PO PRN (20:32)
[2021-02-16] MEDS: QUEtiapine FUMARATE 200 MG TAB PO SCH (20:33)
[2021-02-17 06:45] VITALS: BP 112/65
[2021-02-17] MEDS: NICOTINE 21MG/24HR 1 EA TRANSDERMAL TD SCH (08:10)
[2021-02-17] MEDS: busPIRone 5 MG TAB PO SCH (08:10)
[2021-02-17] MEDS: FLUoxetine 20 MG CAP PO SCH (08:10)
[2021-02-17] MEDS: QUEtiapine FUMARATE 50MG TAB PO SCH (08:10)
[2021-02-17] MEDS: DIVALPROEX 250 MG TAB PO SCH (08:11)
[2021-02-17] MEDS: GABAPENTIN 100 MG CAP PO SCH (08:11)
[2021-02-17] MEDS ORDERED: QUET50TA4 PO (09:40)
[2021-02-17] MEDS ORDERED: FLUO20CA22 PO (09:40)
[2021-02-17] MEDS ORDERED: DEPA250T32 PO (09:40)
[2021-02-17] MEDS ORDERED: BUSP5TA PO (09:40)
[2021-02-17] MEDS ORDERED: MIRT-62 PO (09:40)
[2021-02-17] MEDS ORDERED: NICO21PAT TD (09:40)
[2021-02-17] MEDS ORDERED: GABA-1171 PO (09:40)
[2021-02-17] MEDS ORDERED: QUET100T2 PO (09:40)
[2021-02-17] MEDS ORDERED: BUSP10TA PO (09:44)
--- NOTE | 2021-02-17 13:23 | MHDSPDOC ---
[facility] Discharge Summary Discharge Summary DATE OF ADMISSION: Feb 09, 2021 at 16:02 DATE OF DISCHARGE: DISCHARGE DIAGNOSES: Major depressive disorder, recurrent, moderate Rule out bipolar depressed substance use disorder (cannabis, heroin, alcohol) generalized anxiety disorder borderline personality disorder REASON FOR ADMISSION: Patient is a 36 -year-old , female, who is endorsing increased suicidal ideation and depression and anxiety. She states in the interview, "I cannot do it by myself when I am out there it is different, I am hearing and seeing things when I am alone Anytime I am alone, I don't feel good, I am uncomfortable, I would rather not be in the world I use to be sociable, now i have social anxiety and I use to be able to sleep at my parents but now I can't sleep" Reports having difficulty with housing, states that her phone makes her look for things, feels that she is delusional thinking. States that her mother says that she has been reading excessively. States that the medications was helpful but she felt drowsy and tired. Taking Seroquel but did not want to drink. Says she was calmer and using Seroquel excessively and was doubling the medications, states that she did not go to appointment because she is too anxious to go to appointment. States that she has intrusive thinking and reports that her anxiety is worsening. "I think I need help, I am worried that I need to get the help, I usually need drugs and alcohol to get through the day but I am not using and I am having trouble. " Reports being consumed with historical events of the world ending and becomes tangential at the end of the interview, with slight flight of ideas. She is requesting housing, change in her medications and hoping to have less intrusive thoughts. PER ED REPORT: Pt states that she self-presented to the ED due to SI with a plan to OD on heroin. Pt has a hx of multiple suicide attempts via OD, with the last attempt being earlier this month. Pt has a hx of self-harm via poking herself with needles, which she last did four days ago. Pt denies HI. Pt reports AH that tell her to get herself "back on track." She denies VH. She does not appear to be internally preoccupied. Pt does voice paranoid delusions, stating that she has not slept in several days because she is afraid that people will break in to her apartment & she also believes that people can read her mind. Pt also states that "I feel like something is going to go wrong" with the people in her life, such as they will lose their benefits or they will lose their doctor. Pt c/o depressed mood, anxiety, decreased energy levels, & poor sleep. Pt has a hx of MDD, RODNEY, borderline personality d/o, & substance abuse with two admissions. She does not currently have OP tx & states she missed her follow-up appointment after her last DC from [facility]. Pt has a hx of drinking 2 liters of vodka daily, but states she has only drank once since her DC from [facility] on 01/28/21 & she had two beers. Pt reports MJ, zach, & heroin use, however, her tox screen was only positive for cannabis. VITAL SIGNS: See below. CONSULTANTS INVOLVED: See Medical H + P by Hospitalist TREATMENT AND PROGRESS ON THE UNIT: Patient was admitted to the [facility] on a 9.39 legal status was afforded the following treatment modalities: 1) Individual Therapy 2) Group Therapy 3) Medication Management 4) Milieu Therapy 5) Safe Environment HOSPITAL COURSE: Patient was admitted to [facility] on a 9.39 legal status. Patient was restarted on her home medications, while her depression medications was at therapeutic level patient continued to report moderate to severe anxiety during her admission, Gabapentin was included to her regimen to help with this. She also had Buspirone and seroquel. She had reported continuous racing thoughts but denied all other Bipolar symptoms. Depakote was added and she stated that she had a reduction of her intrusive and racing thinking. Much of her delay in being discharged was due to her high anxiety and feeling that she would return immediately. Pt found medications beneficial and tolerated them well. Mood, anxiety, and intrusive thoughts improved with treatment. Pt attended groups daily during stay. Pts symptoms improved with treatment. On day of discharge pt. denied depression, anxiety, insomnia, SI/HI, hallucinations, delusions. Pt was discharged home with follow-up at [facility]. Pt felt safe for discharge. DISCHARGE ASSESSMENT: In today's interview, patient is alert and oriented, pt.s dress is appropriate. Hygiene and grooming is well-kempt. Smiles on approach and is pleasant and engaged in the interview. Denies depression and anxiety. Denies suicidal and homicidal ideation, planning or intent. Denies and is not observed with barron, psychotic symptoms of delusions, bizarre thinking, obsessions, paranoia, ruminations illogical thoughts, flight of ideas or having poor insight and judgement. Reinforced with patient need to abstain from alcohol and drugs. At discharge patient has normal mentation, declines further hospitalization on a voluntary status and meets criteria for discharge today. Discussed indications of medications, potential benefits and risks, alternatives (including no treatment) and questions were encouraged and answered. Patient encouraged to return to hospital if symptoms worsen or change and encouraged to call unit if he/she/they needs to speak to provider for questions regarding medications or care. MENTAL STATUS EXAMINATION ON DISCHARGE: Patient is a 36 -year-old , female, who is endorsing increased suicidal ideation and depression and anxiety. Speech: Is fluid, conversant, normal rate, tone and volume Language skills are intact Thought processes including: linear and goal oriented Thought content: denies depression and anxiety. Denies suicidal/homicidal ideation, planning or intent. Abstract reasoning, and computation: fair Description of associations: denies, none observed Description of abnormal or psychotic thoughts: denies, none observed. Judgment: fair Insight: fair Orientation: alert and oriented to person, place, time and situation Recent and remote memory: intact Attention span and concentration: good Language: expansive Fund of knowledge: average Mood: Euthymic Mood Affect: reactive Suicide Risk Assessment: 1) Does the patient wish to be ? No 2) Since your admission, have you had any actual thought of killing yourself? No 3) Since your admission, have you been thinking about how you might do this? No 4) Since your admission, have you had these thoughts and had some intention of acting on them? No 5) Since your admission, have you started to work out or worked out the details of how to kill yourself? No 5A) Do you intent to carry out this plan? No and NA 6) Have you ever done anything, started anything, or prepared to do anything with any intent to ? No 6A) How long since your admission did you do any of these? NA MEDICATIONS ON DISCHARGE: See Medication Reconciliation PLAN/FOLLOWUP ARRANGEMENTS: Mental Health Appt 1 * [facility] * Established With This Provider Yes * Therapist RODRÍGUZE * Date Feb 22, 2021 * Time 09:00 * Address of Clinic or Practice [address] [facility] * Follow Up Care Education Label * Mental Health Appt 2 * [facility] * Established With This Provider Yes * Therapist HUE * Date Mar 19, 2021 * Time 13:00 * Address of Clinic or Practice [address] * Follow Up Care Education Label * Medical * Medical Follow Up [facility] * Established With This Provider Yes * Therapist ERIN GRIFFITH * Date Feb 25, 2021 * Time 13:40 * Address of Clinic or Practice [address] [facility] * The amount of time spent in the coordination of care for this patient was approximately 25 minutes. ETOH/Disorder Med Rx ETOH/DRUG DISORDER RX: N/A Vital Signs/I&Os Vital Signs Date Time Temp Pulse Resp B/P (MAP) Pulse Ox O2 Delivery O2 Flow Rate FiO2 02/17/21 06:45 97.9 71 18 112/65 (81) 99 Room Air Laboratory Data Microbiology Microbiology 02/11/21 Urine Culture - Final, Complete Medications Scheduled Buspirone HCl (Buspirone HCl) 5 Mg Tablet, 15 MG PO BID for Anxiety, #14 Buspirone HCl (Buspirone HCl) 10 Mg Tablet, 15 MG PO BID for Anxiety, #21 Divalproex Sodium (Depakote) 250 Mg Tablet.dr, 250 MG PO BID for Mood, #14 Fluoxetine Hcl (Fluoxetine HCl) 20 Mg Capsule, 20 MG PO DAILY for Depression, #7 Gabapentin (Gabapentin) 100 Mg Capsule, 100 MG PO BID for Anxiety, #14 Nicotine (Nicotine Patch) 21 Mg Patch.td24, 1 PATCH TD DAILY for Nicotine Withdrawal, #7 Quetiapine Fumarate (Quetiapine Fumarate) 100 Mg Tablet, 200 MG PO QHS for Sleep, #14 Quetiapine Fumarate (Quetiapine Fumarate) 50 Mg Tablet, 50 MG PO BID@0900,1600 for Mood, #14 Scheduled PRN Mirtazapine (Remeron) 15 Mg Tablet, 15 MG PO QHS PRN for insomnia, #7 Allergies Coded Allergies: trazodone (Verified Allergy, Mild, Rash, 11/30/21) ROLANDO SOUZA NP Feb 17, 2021 12:58
== END 2021-02-17 14:00 | disposition home or self-care (01) | DRG 751 ==
LOC: M ED 17:50 → M ED INP 02-09 16:02 → M PSY 02-09 18:24
PROVIDERS: ADMIT Student in an Organized Health Care Education/Training Program; ATTEND Psychiatry & Neurology Psychiatry
DX: F33.1 Major depressive disorder, recurrent, moderate (principal); F12.10 Cannabis abuse, uncomplicated; F11.10 Opioid abuse, uncomplicated; F10.10 Alcohol abuse, uncomplicated; F41.1 Generalized anxiety disorder; F60.3 Borderline personality disorder; R45.851 Suicidal ideations; Z91.51 Personal history of suicidal behavior; Z20.822 Contact with and (suspected) exposure to COVID-19; Z59.00 Homelessness unspecified; Z56.0 Unemployment, unspecified; F17.210 Nicotine dependence, cigarettes, uncomplicated; Z79.899 Other long term (current) drug therapy; Z88.8 Allergy status to other drugs, medicaments and biological substances; R35.0 Frequency of micturition

== ENCOUNTER 2021-02-23 14:51 | Emergency (ER) | payer MEDICAID ==
[~2021-02-23] VITALS: Ht 162.6 cm; Wt 79.5 kg
[~2021-02-23 14:51] MED LIST changes: +BUSP5TA PO; +DEPA250T32 PO; +GABA-1171 PO
[2021-02-23 16:26] LABS: HEMATOCRIT 38.9 % (36.0-47.0); HEMOGLOBIN 13.1 g/dl (12.0-15.5); MEAN CORPUSCULAR HEMOGLOBIN 31.3 pg (27.0-33.0); MEAN CORPUSCULAR HGB CONC 33.7 g/dl (32.0-36.5); MEAN CORPUSCULAR VOLUME 93.1 fl (80.0-96.0); PLATELET COUNT, AUTOMATED 269 10^3/uL (150-450); RED BLOOD COUNT 4.18 10^6/uL (4.00-5.40); WHITE BLOOD COUNT 8.4 10^3/uL (4.0-10.0)
[2021-02-23 16:44] LABS: AMPHETAMINES LEVEL URINE POSITIVE (NEGATIVE); BARBITURATES URINE NEGATIVE (NEGATIVE); BENZODIAZEPINES URINE NEGATIVE (NEGATIVE); CANNABINOIDS URINE POSITIVE (NEGATIVE); COCAINE METABOLITE URINE NEGATIVE (NEGATIVE); METHADONE URINE NEGATIVE (NEGATIVE); OPIATES URINE NEGATIVE (NEGATIVE); PHENCYCLIDINE URINE NEGATIVE (NEGATIVE)
[2021-02-23 16:49] LABS: HCG, SERUM QUALITATIVE NEGATIVE (NEGATIVE)
[2021-02-23 16:54] LABS: ACETAMINOPHEN LEVEL < 2.0 UG/ML (10.0-30.0); ALBUMIN 3.7 GM/DL (3.2-5.2); ALT/SGPT 62 U/L (12-78); BILIRUBIN,DIRECT 0.2 MG/DL (0.0-0.2); BILIRUBIN,TOTAL 0.4 MG/DL (0.2-1.0); BLOOD UREA NITROGEN 10 MG/DL (7-18); CALCIUM LEVEL 9.2 MG/DL (8.5-10.1); CARBON DIOXIDE LEVEL 26 MEQ/L (21-32); CHLORIDE LEVEL 108 MEQ/L (98-107); CREATININE FOR GFR 0.71 MG/DL (0.55-1.30); ETHYL ALCOHOL (ETHANOL) < 0.003 % (0.000-0.010); GLOMERULAR FILTRATION RATE > 60.0 (>60); GLUCOSE, FASTING 94 MG/DL (70-100); POTASSIUM SERUM 4.1 MEQ/L (3.5-5.1); SALICYLATE LEVEL 1.9 MG/DL (5.0-30.0); SODIUM LEVEL 139 MEQ/L (136-145); THYROID STIMULATING HORMONE 0.634 uIU/ML (0.358-3.740); TOTAL PROTEIN 7.2 GM/DL (6.4-8.2); VALPROIC ACID (DEPAKOTE) 27.3 UG/ML (50.0-100.0)
[2021-02-23] MEDS ORDERED: LORazepam 2 MG TAB PO ONE (17:30)
[2021-02-23] MEDS ORDERED: busPIRone 5 MG TAB PO ONE (17:50)
[2021-02-23] MEDS ORDERED: QUEtiapine FUMARATE 50MG TAB PO ONE (17:50)
[2021-02-23] MEDS ORDERED: GABAPENTIN 100 MG CAP PO ONE (17:50)
[2021-02-23 18:33] LABS: RSV AMPLIFICATION NEGATIVE (NEGATIVE)
[2021-02-23] MEDS ORDERED: QUEtiapine FUMARATE 200 MG TAB PO ONE (20:40)
[2021-02-23] MEDS ORDERED: MIRTAZAPINE 7.5MG PER 1/2 TABLET PO ONE (21:00)
[2021-02-23] MEDS: DIVALPROEX 250 MG TAB PO ONE ×2 (23:49→23:58)
--- NOTE | 2021-02-24 05:58 | ECGEPIP ---
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
[2021-02-24] MEDS ORDERED: FLUoxetine 20 MG CAP PO ONE (12:30)
[2021-02-24] MEDS ORDERED: DIVALPROEX 250 MG TAB PO ONE (12:30)
[2021-02-24] MEDS ORDERED: QUEtiapine FUMARATE 50MG TAB PO ONE (12:30)
[2021-02-24 13:35] VITALS: BP 100/61
== END 2021-02-24 13:39 ==
LOC: M ED 14:51
DX: F22 Delusional disorders (principal); R45.851 Suicidal ideations; R00.0 Tachycardia, unspecified; F33.1 Major depressive disorder, recurrent, moderate; F41.1 Generalized anxiety disorder; F60.3 Borderline personality disorder; F19.10 Other psychoactive substance abuse, uncomplicated; F17.200 Nicotine dependence, unspecified, uncomplicated; Z79.899 Other long term (current) drug therapy; Z88.8 Allergy status to other drugs, medicaments and biological substances

== ENCOUNTER 2021-04-01 14:11 | Inpatient (IN) | payer MEDICAID ==
[~2021-04-01] VITALS: Ht 160 cm; Wt 81.8 kg
[2021-04-01 15:18] LABS: BASO # 0.1 10^3/uL (0.0-0.2); BASO % 0.9 % (0.0-1.0); EOS % 0.4 % (0.0-3.0); HEMATOCRIT 41.3 % (36.0-47.0); HEMOGLOBIN 13.9 g/dl (12.0-15.5); LYMPH # 3.2 10^3/uL (1.5-5.0); MEAN CORPUSCULAR HEMOGLOBIN 31.4 pg (27.0-33.0); MEAN CORPUSCULAR HGB CONC 33.7 g/dl (32.0-36.5); MEAN CORPUSCULAR VOLUME 93.4 fl (80.0-96.0); MONO # 0.5 10^3/uL (0.0-0.8); MONO % 7.4 % (2.0-8.0); PLATELET COUNT, AUTOMATED 336 10^3/uL (150-450); RED BLOOD COUNT 4.42 10^6/uL (4.00-5.40); WHITE BLOOD COUNT 6.8 10^3/uL (4.0-10.0)
[2021-04-01 15:44] LABS: AMPHETAMINES LEVEL URINE NEGATIVE (NEGATIVE); BARBITURATES URINE NEGATIVE (NEGATIVE); BENZODIAZEPINES URINE NEGATIVE (NEGATIVE); CANNABINOIDS URINE POSITIVE (NEGATIVE); COCAINE METABOLITE URINE NEGATIVE (NEGATIVE); METHADONE URINE NEGATIVE (NEGATIVE); OPIATES URINE NEGATIVE (NEGATIVE); PHENCYCLIDINE URINE NEGATIVE (NEGATIVE)
[2021-04-01 16:23] LABS: ACETAMINOPHEN LEVEL < 2.0 UG/ML (10.0-30.0); ALBUMIN 3.8 GM/DL (3.2-5.2); ALT/SGPT 70 U/L (12-78); BILIRUBIN,DIRECT < 0.1 MG/DL (0.0-0.2); BILIRUBIN,TOTAL 0.2 MG/DL (0.2-1.0); BLOOD UREA NITROGEN 6 MG/DL (7-18); CALCIUM LEVEL 8.3 MG/DL (8.5-10.1); CARBON DIOXIDE LEVEL 25 MEQ/L (21-32); CHLORIDE LEVEL 109 MEQ/L (98-107); CREATININE FOR GFR 0.66 MG/DL (0.55-1.30); ETHYL ALCOHOL (ETHANOL) 0.239 % (0.000-0.010); GLOMERULAR FILTRATION RATE > 60.0 (>60); GLUCOSE, FASTING 84 MG/DL (70-100); POTASSIUM SERUM 4.1 MEQ/L (3.5-5.1); SALICYLATE LEVEL 3.1 MG/DL (5.0-30.0); SODIUM LEVEL 142 MEQ/L (136-145); THYROID STIMULATING HORMONE 0.514 uIU/ML (0.358-3.740); TOTAL PROTEIN 7.6 GM/DL (6.4-8.2)
[2021-04-01] MEDS ORDERED: ONDANSETRON 4 MG ORAL DISINTEGRATING TAB PO ONE (21:25)
[2021-04-01] MEDS ORDERED: MIRT-62 PO (23:25)
[2021-04-01] MEDS ORDERED: FLUO20CA22 PO (23:25)
[2021-04-01] MEDS ORDERED: BUSP15TA47 PO (23:25)
[2021-04-01] MEDS ORDERED: DIVA250T67 PO (23:25)
[2021-04-01] MEDS ORDERED: NICO1DIS12 TD (23:25)
[2021-04-01] MEDS ORDERED: FLUO10CA18 PO (23:25)
[2021-04-01] MEDS ORDERED: GABA-1171 PO (23:25)
[2021-04-01] MEDS ORDERED: QUET100T2 PO ×2 (23:27)
[2021-04-01] MEDS ORDERED: PRAZ1CAP PO (23:27)
[2021-04-01] MEDS ORDERED: HOME MED LIST COMPLETE! XX SCH (23:30)
[2021-04-02] MEDS ORDERED: GABAPENTIN 100 MG CAP PO ONE (00:35)
[2021-04-02] MEDS ORDERED: PRAZOSIN 1 MG CAP PO SCH (00:35)
[2021-04-02] MEDS ORDERED: FLUoxetine 10 MG CAP PO ONE (00:35)
[2021-04-02] MEDS ORDERED: busPIRone 5 MG TAB PO ONE (00:35)
[2021-04-02] MEDS ORDERED: QUEtiapine FUMARATE 200 MG TAB PO ONE (00:35)
[2021-04-02] MEDS ORDERED: DIVALPROEX 250 MG TAB PO ONE (00:35)
[2021-04-02 07:46] LABS: HCG, SERUM QUALITATIVE NEGATIVE (NEGATIVE)
[2021-04-02] MEDS: busPIRone 5 MG TAB PO SCH ×2 (13:35→21:13)
[2021-04-02] MEDS: DIVALPROEX 250 MG TAB PO SCH ×2 (13:35→21:13)
[2021-04-02] MEDS: FLUoxetine 10 MG CAP PO SCH (13:36)
[2021-04-02] MEDS: QUEtiapine FUMARATE 100 MG TAB PO SCH (13:36)
[2021-04-02] MEDS ORDERED: LORazepam 2 MG TAB PO PRN (15:35)
[2021-04-02] MEDS ORDERED: LORazepam 2 MG TAB PO ONE (15:35)
[2021-04-02] MEDS ORDERED: MOM 30ML SUSPENSION UDC PO PRN (15:35)
[2021-04-02] MEDS ORDERED: ACETAMINOPHEN TAB 650MG DOSE (2X325MG) PO PRN (15:35)
[2021-04-02] MEDS ORDERED: MAALOX 30 ML SUSP *UDC PO PRN (15:35)
[2021-04-02] MEDS: GABAPENTIN 100 MG CAP PO SCH ×2 (16:00→21:13)
[2021-04-02 20:45] VITALS: BP 120/70
[2021-04-02] MEDS ORDERED: QUEtiapine FUMARATE 200 MG TAB PO SCH (21:00)
[2021-04-02] MEDS: PRAZOSIN 1 MG CAP PO SCH (21:13)
[2021-04-02] MEDS: MIRTAZAPINE 15 MG TAB PO SCH (21:13)
[2021-04-02] MEDS: QUEtiapine FUMARATE 200 MG TAB PO SCH (21:13)
[2021-04-02] MEDS: THIAMINE 100 MG TAB PO SCH (21:13)
[2021-04-02 22:29] VITALS: BP 120/70
[2021-04-03 06:42] VITALS: BP 114/64
[2021-04-03 06:43] VITALS: BP 114/64
[2021-04-03] MEDS: THIAMINE 100 MG TAB PO SCH ×2 (08:56→22:06)
[2021-04-03] MEDS: busPIRone 5 MG TAB PO SCH ×3 (08:56→22:07)
[2021-04-03] MEDS: GABAPENTIN 100 MG CAP PO SCH ×3 (08:56→21:00)
[2021-04-03] MEDS: QUEtiapine FUMARATE 100 MG TAB PO SCH ×2 (08:56→14:30)
[2021-04-03] MEDS: FLUoxetine 10 MG CAP PO SCH (08:57)
[2021-04-03] MEDS: MULTIVITAMINS/MINERALS THERAP 1 TAB PO SCH (08:57)
[2021-04-03] MEDS: DIVALPROEX 250 MG TAB PO SCH ×2 (08:57→22:07)
[2021-04-03] MEDS: FOLIC ACID 1 MG TAB PO SCH (08:57)
[2021-04-03] MEDS ORDERED: ONDANSETRON 4 MG TAB PO PRN (09:50)
[2021-04-03 17:08] VITALS: BP 117/21
[2021-04-03] MEDS: MIRTAZAPINE 15 MG TAB PO SCH (22:05)
[2021-04-03] MEDS: QUEtiapine FUMARATE 200 MG TAB PO SCH (22:05)
[2021-04-03] MEDS: PRAZOSIN 1 MG CAP PO SCH (22:07)
[2021-04-04 06:38] VITALS: BP 116/68
[2021-04-04 06:40] VITALS: BP 116/68
[2021-04-04] MEDS: DIVALPROEX 250 MG TAB PO SCH ×2 (09:44→21:05)
[2021-04-04] MEDS: THIAMINE 100 MG TAB PO SCH ×2 (09:44→21:04)
[2021-04-04] MEDS: QUEtiapine FUMARATE 100 MG TAB PO SCH ×2 (09:44→14:50)
[2021-04-04] MEDS: GABAPENTIN 100 MG CAP PO SCH ×3 (09:44→21:05)
[2021-04-04] MEDS: busPIRone 5 MG TAB PO SCH ×3 (09:44→21:04)
[2021-04-04] MEDS: MULTIVITAMINS/MINERALS THERAP 1 TAB PO SCH (09:44)
[2021-04-04] MEDS: FLUoxetine 10 MG CAP PO SCH (09:45)
[2021-04-04] MEDS: FOLIC ACID 1 MG TAB PO SCH (09:45)
[2021-04-04 16:00] VITALS: BP 134/60
[2021-04-04 16:37] VITALS: BP 134/60
[2021-04-04] MEDS: MIRTAZAPINE 15 MG TAB PO SCH (21:04)
[2021-04-04] MEDS: PRAZOSIN 1 MG CAP PO SCH (21:05)
[2021-04-04] MEDS: QUEtiapine FUMARATE 200 MG TAB PO SCH (21:07)
[2021-04-05 06:27] VITALS: BP 134/76
[2021-04-05] MEDS: THIAMINE 100 MG TAB PO SCH (08:48)
[2021-04-05] MEDS: MULTIVITAMINS/MINERALS THERAP 1 TAB PO SCH (08:48)
[2021-04-05] MEDS: QUEtiapine FUMARATE 100 MG TAB PO SCH ×2 (08:48→14:42)
[2021-04-05] MEDS: FOLIC ACID 1 MG TAB PO SCH (08:48)
[2021-04-05] MEDS: FLUoxetine 10 MG CAP PO SCH (08:48)
[2021-04-05] MEDS: busPIRone 5 MG TAB PO SCH ×3 (08:49→21:19)
[2021-04-05] MEDS: GABAPENTIN 100 MG CAP PO SCH ×3 (08:49→21:17)
[2021-04-05] MEDS: DIVALPROEX 250 MG TAB PO SCH ×2 (08:49→21:19)
[2021-04-05 10:18] VITALS: BP 136/78
[2021-04-05 10:23] VITALS: BP 136/78
[2021-04-05 16:13] VITALS: BP 124/83
[2021-04-05 19:00] VITALS: BP 124/83
[2021-04-05] MEDS: MIRTAZAPINE 15 MG TAB PO SCH (21:18)
[2021-04-05] MEDS: PRAZOSIN 1 MG CAP PO SCH (21:18)
[2021-04-05] MEDS: QUEtiapine FUMARATE 200 MG TAB PO SCH (21:19)
[2021-04-06 06:26] VITALS: BP 140/83
[2021-04-06] MEDS: QUEtiapine FUMARATE 100 MG TAB PO SCH ×2 (08:47→14:56)
[2021-04-06] MEDS: DIVALPROEX 250 MG TAB PO SCH ×2 (09:33→21:28)
[2021-04-06] MEDS: busPIRone 5 MG TAB PO SCH ×3 (09:34→21:27)
[2021-04-06] MEDS: FLUoxetine 10 MG CAP PO SCH (09:34)
[2021-04-06] MEDS: GABAPENTIN 100 MG CAP PO SCH ×3 (09:34→21:27)
[2021-04-06] MEDS: FOLIC ACID 1 MG TAB PO SCH (09:34)
[2021-04-06] MEDS: MULTIVITAMINS/MINERALS THERAP 1 TAB PO SCH (09:35)
[2021-04-06] MEDS: QUEtiapine FUMARATE 200 MG TAB PO SCH (21:27)
[2021-04-06] MEDS: MIRTAZAPINE 15 MG TAB PO SCH (21:27)
[2021-04-06] MEDS: PRAZOSIN 1 MG CAP PO SCH (21:36)
[2021-04-07 06:21] VITALS: BP 137/83
[2021-04-07] MEDS: FLUoxetine 10 MG CAP PO SCH (08:52)
[2021-04-07] MEDS: GABAPENTIN 100 MG CAP PO SCH ×3 (08:52→20:48)
[2021-04-07] MEDS: DIVALPROEX 250 MG TAB PO SCH ×2 (08:52→20:48)
[2021-04-07] MEDS: QUEtiapine FUMARATE 100 MG TAB PO SCH ×2 (08:52→15:15)
[2021-04-07] MEDS: busPIRone 5 MG TAB PO SCH ×3 (08:52→20:48)
[2021-04-07 17:50] VITALS: BP 118/78
[2021-04-07] MEDS: MIRTAZAPINE 15 MG TAB PO SCH (20:47)
[2021-04-07] MEDS: QUEtiapine FUMARATE 200 MG TAB PO SCH (20:48)
[2021-04-07 20:55] VITALS: BP 133/83
[2021-04-07] MEDS: PRAZOSIN 1 MG CAP PO SCH (20:55)
[2021-04-08 06:33] VITALS: BP 113/59
[2021-04-08] MEDS: GABAPENTIN 100 MG CAP PO SCH (08:35)
[2021-04-08] MEDS: QUEtiapine FUMARATE 100 MG TAB PO SCH (08:35)
[2021-04-08] MEDS: DIVALPROEX 250 MG TAB PO SCH (08:35)
[2021-04-08] MEDS: busPIRone 5 MG TAB PO SCH (08:36)
[2021-04-08] MEDS: FLUoxetine 10 MG CAP PO SCH (08:36)
[2021-04-08] MEDS ORDERED: QUET100T2 PO (09:28)
[2021-04-08] MEDS ORDERED: MINI1CAP PO (09:28)
[2021-04-08] MEDS ORDERED: FLUO10CA18 PO (09:28)
[2021-04-08] MEDS ORDERED: QUET200T2 PO (09:28)
[2021-04-08] MEDS ORDERED: BUSP5TA PO (09:28)
[2021-04-08] MEDS ORDERED: GABA-1171 PO (09:28)
[2021-04-08] MEDS ORDERED: MIRT-62 PO (09:28)
[2021-04-08] MEDS ORDERED: DEPA250T32 PO (09:28)
== END 2021-04-08 13:30 | disposition home or self-care (01) | DRG 755 ==
LOC: M ED 14:11 → M ED INP 04-02 15:34 → M PSY 04-02 20:42
PROVIDERS: ADMIT Student in an Organized Health Care Education/Training Program; ATTEND Student in an Organized Health Care Education/Training Program
DX: F43.10 Post-traumatic stress disorder, unspecified (principal); U07.1 COVID-19; R45.851 Suicidal ideations; Z91.128 Patient's intentional underdosing of medication regimen for other reason; F41.1 Generalized anxiety disorder; F60.3 Borderline personality disorder; Z62.810 Personal history of physical and sexual abuse in childhood; Z65.2 Problems related to release from prison; Z79.899 Other long term (current) drug therapy; Z88.8 Allergy status to other drugs, medicaments and biological substances; B19.20 Unspecified viral hepatitis C without hepatic coma; F17.210 Nicotine dependence, cigarettes, uncomplicated; Z91.51 Personal history of suicidal behavior; F44.9 Dissociative and conversion disorder, unspecified; F32.A Depression, unspecified

== ENCOUNTER → 2021-04-10 | Outpatient (REF) ==
[~2021-04-10] MED LIST changes: +BUSP15TA47 PO; +DIVA250T67 PO; +FLUO10CA18 PO; +MINI1CAP PO; +NICO1DIS12 TD; +PRAZ1CAP PO; +QUET200T2 PO
[2021-04-11 13:21] LABS: RSV AMPLIFICATION NEGATIVE (NEGATIVE)
== END ==
LOC: M LAB 16:26
DX: Z20.822 Contact with and (suspected) exposure to COVID-19 (principal)